=== PATIENT | male | born 1960 | race Caucasian/White ===

== ENCOUNTER 2019-11-19 08:18 | Outpatient (REF) | payer OTHER, SELFPAY ==
[2019-11-19 11:21] LABS: MANUAL DIFF FLAG NO
[2019-11-19 11:29] LABS: Basophils Absolute Auto 0.1 X10*3/uL (0.0-0.2); Basophils Percent Auto 0.9 % (0-2); Eosinophils Absolute Auto 0.3 X10*3/uL (0.0-0.4); Eosinophils Percent Auto 4.1 % (0-4); Hematocrit 44.5 % (42-52); Hemoglobin 15.2 g/dl (14.0-18.0); Imm Gran Abs Auto 0.02 X10*3/uL (0.00-0.03); Imm Gran Pct Auto 0.3 % (0.0-0.4); Lymphocytes Absolute Auto 1.8 X10*3/uL (1.2-4.9); Lymphocytes Percent Auto 27.6 % (20-40); Mean Corpuscular HGB Conc 34.2 g/dl (31.0-36.0); Mean Corpuscular Hemoglobin 32.5 pg (27.0-33.0); Mean Corpuscular Volume 95.1 fL (80-98); Mean Platelet Volume 10.1 fL (9.4-12.4); Monocytes Absolute Auto 0.6 X10*3/uL (0.1-1.2); Neutrophils Absolute Auto 3.6 X10*3/uL (2.0-8.3); Neutrophils Percent Auto 57.1 % (45-73); Platelet Count 186 X10*3/uL (160-400); Red Blood Count 4.68 X10*6/uL (4.60-5.80); Red Cell Distribution Width 11.9 % (11.0-16.0); White Blood Count 6.3 X10*3/uL (4.8-10.8)
[2019-11-19 11:55] LABS: Alanine Aminotransferase 46 U/L (0-40); Albumin Level 4.5 g/dL (3.5-5.0); Alkaline Phosphatase 56 U/L (39-117); Anion Gap 11 (12-20); Aspartate Amino Transferase 28 U/L (5-37); Bilirubin Total 0.7 mg/dL (0.0-1.0); Blood Urea Nitrogen 18 mg/dL (9-16); Calcium 9.2 mg/dL (8.4-10.2); Carbon Dioxide 28 mmol/L (22-29); Chloride 105 mmol/L (96-108); Cholesterol 167 mg/dL; Estimated Glomerular Filt Rate > 60; Glucose Fasting 97 mg/dL (60-99); HDL Cholesterol 37 mg/dL; LDL Cholesterol Calculated 102 mg/dl; Potassium 4.2 mmol/l (3.3-5.1); Sodium 140 mmol/L (135-145); Triglycerides 140 mg/dL
[2019-11-19 12:11] LABS: Glucose Urine UA NEG (NEG); Leukocyte Esterase Urine NEG (NEG); Nitrite Urine NEG (NEG); Specific Gravity - Urine 1.015 (1.005-1.025); Urine Blood NEG (NEG); Urine Ketones NEG (NEG); Urine Protein NEG (NEG-TRACE)
[2019-11-19 12:12] LABS: Appearance Urine CLEAR; Color Urine YELLOW
[2019-11-19 12:19] LABS: Prostate Specific Antigen 1.58 ng/mL (<0.05-4.0); Thyroid Stimulating Hormone 3.29 mIU/mL (0.32-4.0); Vitamin D 25-OH Total 31.9 ng/mL (>30)
[2019-11-19 12:43] LABS: RBC Urine 0-2 /HPF (0); WBC Urine 0 /HPF (0-4)
== END 2019-11-19 08:19 | disposition home or self-care (01) ==
LOC: HO.HMGCLDS 08:18
PROVIDERS: PCP Internal Medicine; Visit Provider Internal Medicine
DX: Z00.00 Encounter for general adult medical examination without abnormal findings (principal); I10 Essential (primary) hypertension; E55.9 Vitamin D deficiency, unspecified; Z80.42 Family history of malignant neoplasm of prostate
CPT/HCPCS: 36415; 80053; 80061; 81003; 81015; 82306; 84153; 84443; 85025

== ENCOUNTER 2020-01-28 07:28 | Day surgery (SDC) | payer BC, SELFPAY ==
[2020-01-24 10:40] VITALS: BMI 32.4
--- NOTE | 2020-01-26 14:28 | P.CONAN_ITS ---
Documented by User: Svetlana Parada 01/26/20 14:29 HPI - Anesthesia Eval Consult details Narrative: 59yo M for Colonoscopy [facility] Past Medical History Medical History HTN (hypertension) Surgical History Surgical History History of total left knee replacement Hx of arthroscopy of right knee Hx of colonoscopy Hx of umbilical hernia repair Social History Social History Are you a primary workforce investment act career manager to a significant other at home: No Do you presently have visiting nurse or other home services: No Smoking Status: Unknown if ever smoked Use of substances other than those prescribed or required for medical reasons: No Advance Directives: No Advance Directives Information Provided: No Advance Directives on File: No Meds Allergies Allergy/AdvReac Type Severity Reaction Status Date / Time No Known Allergies Allergy Verified 01/24/20 10:45 Home Medications Medication Instructions Recorded Confirmed Type acetaminophen [Tylenol Extra 500 mg PO Q6H PRN 01/24/20 01/24/20 History Strength] yrlmxxdo-osm-ZP-lycopen-lutein 1 tab PO DAILY 01/24/20 01/24/20 History [Centrum Silver Men] Exam Exam Date and Time: January 26, 2020 1429 Height,Weight and Vital Signs: Height 5 ft 11.5 in Weight 107.048 kg Assessment and Plan Assessment Anesthesia Assessment: Chart Reviewed Documented by User: Shelley Prado 01/28/20 08:14 [facility] Past Medical History Medical History HTN (hypertension) Surgical History Surgical History History of total left knee replacement Hx of arthroscopy of right knee Hx of colonoscopy Hx of umbilical hernia repair Social History Social History Are you a primary workforce investment act career manager to a significant other at home: No Do you presently have visiting nurse or other home services: No Smoking Status: Unknown if ever smoked Use of substances other than those prescribed or required for medical reasons: No Advance Directives: No Advance Directives Information Provided: No Advance Directives on File: No Meds Allergies Allergy/AdvReac Type Severity Reaction Status Date / Time No Known Allergies Allergy Verified 01/24/20 10:45 Home Medications Medication Instructions Recorded Confirmed Type acetaminophen [Tylenol Extra 500 mg PO Q6H PRN 01/24/20 01/24/20 History Strength] phtqzull-lcg-OF-lycopen-lutein 1 tab PO DAILY 01/24/20 01/24/20 History [Centrum Silver Men] Exam Airway Mallampati Class: II (Caplaterally top) TM Dist: >3cm Neck ROM: Full Heart: RrR Lungs: CTA. L Assessment and Plan Final Anesthetic Review NPO: Yes ASA Class: II Final Preanesthetic Review: Meds/Allgs Chart Reviewed Patient Risk: Intermediate Procedure Risk: Intermediate Anesthetic Plan Anesthetic Plan: MAC: Disposition: Standard PACU
[2020-01-28 07:56] VITALS: BP 158/84; PULSE 77; RESP 16; TEMP 36.3; O2SAT 97
[2020-01-28] MEDS: Lactated Ringers 1,000 ML 100 ML IVCONT (08:02)
--- NOTE | 2020-01-28 08:18 | MHC.SHP ---
Pre-Procedural Eval Section A The patient is an INPATIENT: No Changes since office visit: No Cold of Flu in the past 2 weeks, No New Medical Problems, No Changes in Medication and No Patient answered all questions The History & Physical has been completed within 30 days and I have reviewed it.: Yes Section B Chief Complaint: screening Allergies: Allergies Allergy/AdvReac Type Severity Reaction Status Date / Time No Known Allergies Allergy Verified 01/24/20 10:45 Plan Patient has been examined and remains a candidate for the planned procedure
[2020-01-28 08:47] VITALS: BP 119/73; PULSE 77; RESP 14; TEMP 37.1; O2SAT 97
--- NOTE | 2020-01-28 08:49 | PM.OP ---
Brief Operative Note Date of Service: 01/28/20 Pre-op diagnosis: screening Post-op diagnosis: same Procedure: colonoscopy Surgeon: Nathan Arenas Anesthesia: MAC Estimated blood loss (mL): 0 Pathology: none sent Condition: stable Disposition: PACU
[2020-01-28 09:02] VITALS: BP 126/82; PULSE 70; RESP 16; TEMP 37.1; O2SAT 97
--- NOTE | 2020-01-28 09:09 | OP_ITS ---
SURGEON: Nathan Arenas MD PREOPERATIVE DIAGNOSIS: POSTOPERATIVE DIAGNOSIS: PROCEDURE PERFORMED: Colonoscopy to the terminal ileum. ESTIMATED BLOOD LOSS: COMPLICATIONS: ANESTHESIA: ASSISTANTS: SPECIMENS: INDICATION: Colon cancer screening. MEDICATIONS: Monitored anesthesia care. DESCRIPTION OF PROCEDURE: History and physical performed. The risks and benefits of the procedure were explained to the patient. Informed consent was obtained and the patient was placed in the left lateral decubitus position. Digital rectal exam was performed and was found to be normal. The Olympus pediatric video colonoscope was introduced into the rectum and advanced to the cecum without difficulty. The cecum was identified by transillumination, palpation, and identification of ileocecal valve. Examination was performed and the scope was removed. He tolerated the procedure well and was taken to recovery area in stable condition. FINDINGS: The terminal ileum was normal. The visualized colonic mucosa was within normal limits without evidence of masses or ulcers. No polyps were identified. The quality of prep was good. Retroflexed examination was normal. IMPRESSION: Normal colonoscopy. RECOMMENDATIONS: 1. Follow up as needed. 2. Repeat colonoscopy is recommended in 5 years because of prior history of colon polyps and family history of colon polyps as well. MD ALIZA Pantoja/JESSICA / [id number]
--- NOTE | 2020-01-28 09:18 | HO.POSTANES ---
Post Anesthesia Evaluation Post Anesthesia Evaluation Vital Signs: Vital Signs Temp Pulse Resp BP Pulse Ox 01/28/20 09:02 98.7 F 70 16 126/82 97 01/28/20 08:47 98.7 F 77 14 119/73 97 01/28/20 07:56 97.3 F 77 16 158/84 H 97 Anesthesia: Monitored Mental Status: Awake Pain Control: Satisfactory Nausea/Vomiting: None Hydration: Adequate Anesthesia-Related Issues: No Anes. Related Issues
== END 2020-01-28 09:38 | disposition home or self-care (01) ==
PROVIDERS: PCP Internal Medicine; Visit Provider Internal Medicine Gastroenterology
PROC: 0DJD8ZZ Inspection of Lower Intestinal Tract, Via Natural or Artificial Opening Endoscopic (ICD-10-PCS; CPT 45378; principal; 2020-01-28 10:00)
DX: Z12.11 Encounter for screening for malignant neoplasm of colon (principal); Z86.010 Personal history of colon polyps; Z83.71 Family history of colonic polyps
CPT/HCPCS: 45378

== ENCOUNTER 2021-05-02 07:14 | Outpatient (REF) | payer OTHER, SELFPAY ==
[2021-05-02 11:17] LABS: Appearance Urine CLEAR; Color Urine YELLOW; Glucose Urine UA NEG (NEG); Leukocyte Esterase Urine NEG (NEG); Nitrite Urine NEG (NEG); PH 5.5 (5.0-8.0); Specific Gravity - Urine 1.025 (1.005-1.025); Urine Blood NEG (NEG); Urine Ketones NEG (NEG); Urine Protein NEG (NEG-TRACE)
[2021-05-02 11:18] LABS: MANUAL DIFF FLAG NO
[2021-05-02 11:42] LABS: Basophils Absolute Auto 0.1 X10*3/uL (0.0-0.2); Basophils Percent Auto 0.9 % (0-2); Eosinophils Absolute Auto 0.3 X10*3/uL (0.0-0.4); Eosinophils Percent Auto 3.7 % (0-4); Hematocrit 44.9 % (42.0-52.0); Hemoglobin 15.3 g/dl (14.0-18.0); Imm Gran Abs Auto 0.01 X10*3/uL (0.00-0.03); Imm Gran Pct Auto 0.1 % (0.0-0.4); Lymphocytes Absolute Auto 2.1 X10*3/uL (1.2-4.9); Lymphocytes Percent Auto 31.1 % (20-40); Mean Corpuscular HGB Conc 34.1 g/dl (31.0-36.0); Mean Corpuscular Hemoglobin 32.6 pg (27.0-33.0); Mean Corpuscular Volume 95.5 fL (80.0-98.0); Mean Platelet Volume 9.8 fL (9.4-12.4); Monocytes Absolute Auto 0.6 X10*3/uL (0.1-1.2); Monocytes Percent Auto 8.6 % (2-11); Neutrophils Absolute Auto 3.7 x10*3/uL (2.0-8.3); Neutrophils Percent Auto 55.6 % (45-73); Platelet Count 199 X10*3/uL (160-400); Red Cell Distribution Width 12.1 % (11.0-16.0); White Blood Count 6.7 X10*3/uL (4.8-10.8)
[2021-05-02 12:26] LABS: Alanine Aminotransferase 48 U/L (0-40); Albumin Level 4.3 g/dL (3.5-5.0); Alkaline Phosphatase 62 U/L (39-117); Anion Gap 12 (12-20); Aspartate Amino Transferase 27 U/L (5-37); Bilirubin Total 0.7 mg/dL (0.0-1.0); Blood Urea Nitrogen 18 mg/dL (9-16); Calcium 9.5 mg/dL (8.4-10.2); Carbon Dioxide 26 mmol/L (22-29); Chloride 105 mmol/L (96-108); Cholesterol 181 mg/dL; Estimated Glomerular Filt Rate > 60; Glucose Fasting 109 mg/dL (60-99); HDL Cholesterol 38 mg/dL; LDL Cholesterol Calculated 114 mg/dl; Potassium 4.2 mmol/L (3.3-5.1); Sodium 139 mmol/L (135-145); Total Protein 7.2 g/dL (6.5-8.0); Triglycerides 145 mg/dL
[2021-05-02 12:48] LABS: Thyroid Stimulating Hormone 4.06 uIU/mL (0.32-4.0); Vitamin D 25-OH Total 21.7 ng/mL (>30)
== END 2021-05-02 07:15 | disposition home or self-care (01) ==
LOC: HO.HMGCLDS 07:14
PROVIDERS: Visit Provider Internal Medicine
DX: Z00.00 Encounter for general adult medical examination without abnormal findings (principal); E55.9 Vitamin D deficiency, unspecified; E66.09 Other obesity due to excess calories; Z68.31 Body mass index [BMI] 31.0-31.9, adult
CPT/HCPCS: 36415; 80053; 80061; 81003; 82306; 84443; 85025

== ENCOUNTER → 2021-08-16 13:57 | Outpatient (REF) | payer OTHER, SELFPAY ==
--- NOTE | 2021-08-16 13:56 | ECG_ITS ---
Test Reason : R00.2 Blood Pressure : / mmHG Vent. Rate : 081 BPM Atrial Rate : 081 BPM P-R Int : 160 ms QRS Dur : 084 ms QT Int : 378 ms P-R-T Axes : 023 002 044 degrees QTc Int : 439 ms Sinus rhythm with occasional Premature ventricular complexes Otherwise normal ECG No previous ECGs available Referred By: Dev Fairchild Electronically Signed By:MARY MOHAN
--- NOTE | 2021-08-16 14:06 | CA_ITS ---
Transthoracic Echocardiogram Patient (Last, First, Middle): Andrea Wong, Gender: Male Date of : 1960 Age: 61 Procedure Date: 08/16/2021 Procedure Type: Transthoracic Echocardiogram Location: OP Height: 182.88 cm Weight: 105.24 kg BSA: 2.27 m2 Heart Rate: 72 bpm BP: 138 / 74 mmHg Compensation Analyst: SB Referring MD: Nadeem Fairchild DO Symptoms: PALPITATOINS Study Quality: Adequate ECG Rhythm: Sinus Conclusions: - The left ventricular systolic function is normal. The visually estimated ejection fraction is between 60-65%. - No obvious valvular pathology seen on this study. Findings Left Ventricle Normal left ventricular cavity size. There is normal left ventricular wall thickness. The left ventricular systolic function is normal. The visually estimated ejection fraction is between 60-65%. There is no evidence of regional wall motion abnormalities. Diastolic function is normal for age. LV peak GLS -17.7% (normal). Right Ventricle Normal right ventricular cavity size and systolic function. Atria Both atria are normal in size. Aortic Valve There is a normal trileaflet aortic valve. There is no aortic valve stenosis. There is no aortic valve regurgitation. Mitral Valve The mitral valve appears normal. There is no mitral valve regurgitation. There is no mitral valve stenosis. Pulmonic Valve The pulmonic valve is likely normal. Tricuspid Valve Normal tricuspid valve structure. There is trace tricuspid valve regurgitation. The pulmonary artery systolic pressure is normal. Great Vessels The asc aorta is normal in size. Venous The inferior vena cava is normal in size and collapses greater than 50% with inspiration. Pericardium/Pleural There is no evidence of pericardial effusion. Prior Study Comparison No prior study available for comparison. Recommendations, Care & Conclusions No obvious valvular pathology seen on this study. Measurements 2D Linear Measurements IVSd: 1.08 0.6-0.9/0.6-1.0 cm LVIDd: 5.00 3.9-5.3/4.2-5.9 cm LVIDd Index: 2.20 2.4-3.2/2.2-3.1 cm/m2 LVIDs: 3.06 2.0-3.6 cm LVPWd: 0.90 0.7-1.1 cm Ao Root: 4.20 2.1-3.5 cm LA Diam: 3.50 2.7-3.8/3.0-4.0 cm LAIDs Index: 1.54 1.5-2.3 cm/m2 LV Mass: 223.06 67-162/88-224 g LV Mass Index: 98.27 43-95/49-115 g/m2 LVOT Diam: 2.40 3.0+(-)1.3 cm 2D Systolic Function EF 4C: 58.60 >55% EF 2C: 59.30 >55% EF BiP: 59.40 >55% Mitral Valve MV Pk E: 0.60 MV PK A: 0.67 MV Decel Time: 279.00 E/A: 0.90 E'Lateral: 8.05 E'Medial: 5.00 E/E' Med: 11.90 E/E' Lat: 7.40 PHT: 82.00 MVA PHT: 2.68 Decel [place]: 2.14 Aortic Valve AoV Pk Darius: 1.08 AoV Mn Darius: 0.81 AoV VTI: 0.22 AoV Pk Grad: 5.00 Aov Mn Grad: 3.00 ANABELLE Cont.VTI: 3.74 LVOT LVOT Pk Darius: 1.03 LVOT Mn Darius: 0.75 LVOT VTI: 0.18 LVOT Pk Grad: 4.00 LVOT Mn Grad: 2.00 LVOT Diam: 2.40 LVOT Area: 4.52 Diastolic Function MV Pk E: 0.60 MV Pk A: 0.67 E/A: 0.90 E'Medial: 5.00 E/E' Med: 11.90 E' Laterial: 8.05 E/E' Lat: 7.40 Right Ventricle TAPSE (mm): 27.00 TVS' Darius: 19.80 Tricuspid Valve RA Press: 3.00 Great Vessels Aorta Ao Root-2D: 4.20 2.0-3.7 cm Sinus of Valsalva: 4.30 2.0-3.[address] Ridge: 3.25 1.7-3.4 cm Ao Asc: 3.60 2.1-3.4 cm Pulmonary Veins Pulm Vein S/D 1.40 Pulmonary Valve PV Pk Darius: 1.28 Peak PV Grad: 7.00 Updated in Other Vendor System with Status of Final Koby Armijo MD electronically signed on 08/18/2021 11:32:05 AM with status of Final
--- NOTE | 2021-08-16 14:08 | ECG_ITS ---
Hook-up date: 2021-08-16 13:52:00 Duration: 24:26:00 Test Indications: PALPITATIONS Medications: 288588 QRS complexes 814 Ventricular ectopics which represent <1 % of total QRS comp. 2763 Supraventricular ectopics which represent 2 % of total QRS comp. * Paced QRS complexs which represent % of total QRS comp. VENTRICULAR ECTOPY 814 Isolated 0 Bigeminal Cycles 0 Couplets 0 Runs 0 Beats in Runs * Beats LONGEST at * BPM at :: -- * Beats FASTEST at * BPM at :: -- SUPRAVENTRICULAR ECTOPY 2645 Isolated 56 Couplets 2 Runs 6 Beats in Runs 3 Beats LONGEST at 102 BPM at 22:02:37 2021-08-16 3 Beats FASTEST at 102 BPM at 22:02:37 2021-08-16 HEART RATES 52 MIN at 02:50:28 2021-08-17 74 AVG 126 MAX at 11:20:42 2021-08-17 LONGEST RR 1.2800 secs at 05:05:53 2021-08-17 S-T LEVELS Channel 1 - 128 mm at 13:52:00 2021-08-16 - 128 mm at 13:52:00 2021-08-16 Channel 2 - 128 mm at 13:52:00 2021-08-16 - 128 mm at 13:52:00 2021-08-16 Channel 3 - 128 mm at 03:31:11 -- - 128 mm at 03:31:11 Underlying rhythm is sinus; Average ventricular rate 74/min; range 52-126/min; Occasional supraventricular ectopy (burden 3%) Rare ventricular ectopy (<1%); No sustained arrhythmias; Patient diary not available for review. Referred By: Nadeem Fairchild Overread By: MARY MOHAN
== END ==
LOC: HO.CARD 13:57
PROVIDERS: PCP Internal Medicine; Visit Provider Obstetrics & Gynecology
DX: R00.2 Palpitations (principal)
CPT/HCPCS: 93005; 93226; 93306; 93356

== ENCOUNTER 2022-01-08 08:05 | Outpatient (REF) | payer OTHER, SELFPAY ==
[2022-01-08 11:29] LABS: Appearance Urine Clear; Color Urine Yellow; Glucose Urine UA Negative (Negative); Leukocyte Esterase Urine Negative (Negative); Nitrite Urine Negative (Negative); PH 5.5 (5.0-9.0); Specific Gravity - Urine 1.025 (1.005-1.025); Urine Blood Negative (Negative); Urine Ketones Negative (Negative); Urine Protein Negative (Neg-Trace)
[2022-01-08 11:38] LABS: MANUAL DIFF FLAG NO
[2022-01-08 11:51] LABS: Basophils Absolute Auto 0.1 X10*3/uL (0.0-0.2); Eosinophils Absolute Auto 0.1 X10*3/uL (0.0-0.4); Eosinophils Percent Auto 2.4 % (0-4); Hematocrit 43.5 % (42.0-52.0); Imm Gran Abs Auto 0.01 X10*3/uL (0.00-0.03); Imm Gran Pct Auto 0.2 % (0.0-0.4); Lymphocytes Absolute Auto 1.8 X10*3/uL (1.2-4.9); Lymphocytes Percent Auto 31.6 % (20-40); Mean Corpuscular HGB Conc 34.5 g/dl (31.0-36.0); Mean Corpuscular Hemoglobin 32.4 pg (27.0-33.0); Mean Platelet Volume 9.6 fL (9.4-12.4); Monocytes Absolute Auto 0.6 X10*3/uL (0.1-1.2); Monocytes Percent Auto 10.8 % (2-11); Neutrophils Absolute Auto 3.1 x10*3/uL (2.0-8.3); Platelet Count 188 X10*3/uL (160-400); Red Blood Count 4.63 X10*6/uL (4.60-5.80); Red Cell Distribution Width 11.9 % (11.0-16.0); White Blood Count 5.8 X10*3/uL (4.8-10.8)
[2022-01-08 13:08] LABS: Alanine Aminotransferase 48 U/L (0-40); Albumin Level 4.3 g/dL (3.5-5.0); Alkaline Phosphatase 56 U/L (39-117); Anion Gap 12 (12-20); Aspartate Amino Transferase 29 U/L (5-37); Bilirubin Total 1.1 mg/dL (0.0-1.0); Blood Urea Nitrogen 20 mg/dL (9-16); Calcium 9.3 mg/dL (8.4-10.2); Carbon Dioxide 26 mmol/L (22-29); Chloride 106 mmol/L (96-108); Cholesterol 163 mg/dL; Estimated Glomerular Filt Rate > 60; Glucose Fasting 108 mg/dL (60-99); HDL Cholesterol 36 mg/dL; LDL Cholesterol Calculated 105 mg/dl; PSA,Total (Free>4and<10) 2.53 ng/mL (0.00-4.00); Potassium 4.4 mmol/L (3.3-5.1); Sodium 140 mmol/L (135-145); Thyroid Stimulating Hormone 3.01 uIU/mL (0.32-4.0); Triglycerides 113 mg/dL; Vitamin D 25-OH Total 27.4 ng/mL (>30)
== END 2022-01-08 08:06 | disposition home or self-care (01) ==
LOC: HO.HMGCLDS 08:05
PROVIDERS: PCP Internal Medicine; Visit Provider Internal Medicine
DX: Z00.00 Encounter for general adult medical examination without abnormal findings (principal); Z12.5 Encounter for screening for malignant neoplasm of prostate; E55.9 Vitamin D deficiency, unspecified; E66.09 Other obesity due to excess calories; I10 Essential (primary) hypertension; Z80.42 Family history of malignant neoplasm of prostate
CPT/HCPCS: 36415; 80053; 80061; 81003; 82306; 84153; 84443; 85025

== ENCOUNTER 2023-02-05 07:49 | Outpatient (REF) | payer OTHER, SELFPAY ==
[2023-02-05 11:30] LABS: MANUAL DIFF FLAG NO
[2023-02-05 11:39] LABS: Basophils Absolute Auto 0.1 X10*3/uL (0.0-0.2); Basophils Percent Auto 1.1 % (0-2); Eosinophils Absolute Auto 0.1 X10*3/uL (0.0-0.4); Eosinophils Percent Auto 2.5 % (0-4); Hematocrit 43.1 % (42.0-52.0); Imm Gran Abs Auto 0.01 X10*3/uL (0.00-0.03); Imm Gran Pct Auto 0.2 % (0.0-0.4); Lymphocytes Absolute Auto 1.5 X10*3/uL (1.2-4.9); Lymphocytes Percent Auto 25.7 % (20-40); Mean Corpuscular HGB Conc 34.8 g/dl (31.0-36.0); Mean Corpuscular Hemoglobin 32.7 pg (27.0-33.0); Mean Corpuscular Volume 93.9 fL (80.0-98.0); Mean Platelet Volume 9.8 fL (9.4-12.4); Monocytes Absolute Auto 0.6 X10*3/uL (0.1-1.2); Monocytes Percent Auto 9.8 % (2-11); Neutrophils Absolute Auto 3.4 x10*3/uL (2.0-8.3); Neutrophils Percent Auto 60.7 % (45-73); Platelet Count 181 X10*3/uL (160-400); Red Blood Count 4.59 X10*6/uL (4.60-5.80); Red Cell Distribution Width 11.9 % (11.0-16.0); White Blood Count 5.6 X10*3/uL (4.8-10.8)
[2023-02-05 12:23] LABS: Alanine Aminotransferase 48 U/L (0-40); Albumin Level 4.3 g/dL (3.5-5.0); Alkaline Phosphatase 57 U/L (39-117); Anion Gap 11 (12-20); Aspartate Amino Transferase 30 U/L (5-37); Bilirubin Total 0.7 mg/dL (0.0-1.0); Blood Urea Nitrogen 18 mg/dL (9-16); Calcium 9.3 mg/dL (8.4-10.2); Carbon Dioxide 25 mmol/L (22-29); Chloride 108 mmol/L (96-108); Cholesterol 169 mg/dL (<200); Estimated Glomerular Filt Rate > 60; Glucose Fasting 114 mg/dL (60-99); HDL Cholesterol 38 mg/dL (>40); LDL Cholesterol Calculated 103 mg/dL (<100); Potassium 3.8 mmol/L (3.3-5.1); Sodium 140 mmol/L (135-145); Total Protein 6.6 g/dL (6.5-8.0); Triglycerides 141 mg/dL (<150)
[2023-02-05 12:25] LABS: PSA,Total (Free>4and<10) 3.16 ng/mL (0.00-4.00)
[2023-02-05 12:39] LABS: Thyroid Stimulating Hormone 3.11 uIU/mL (0.32-4.0); Vitamin D 25-OH Total 32.1 ng/mL (>30)
== END 2023-02-05 07:50 | disposition home or self-care (01) ==
LOC: HO.HMGCLDS 07:49
PROVIDERS: PCP Internal Medicine; Visit Provider Internal Medicine
DX: Z00.00 Encounter for general adult medical examination without abnormal findings (principal); Z12.5 Encounter for screening for malignant neoplasm of prostate; I10 Essential (primary) hypertension; E55.9 Vitamin D deficiency, unspecified; E66.09 Other obesity due to excess calories; Z80.42 Family history of malignant neoplasm of prostate
CPT/HCPCS: 36415; 80053; 80061; 82306; 84153; 84443; 85025

== ENCOUNTER 2024-01-27 07:39 | Outpatient (REF) | payer OTHER, SELFPAY ==
[2024-01-27 10:18] LABS: MANUAL DIFF FLAG NO
[2024-01-27 10:31] LABS: Basophils Absolute Auto 0.1 X10*3/uL (0.0-0.2); Eosinophils Absolute Auto 0.2 X10*3/uL (0.0-0.4); Hematocrit 42.6 % (42.0-52.0); Imm Gran Abs Auto 0.02 X10*3/uL (0.00-0.03); Imm Gran Pct Auto 0.3 % (0.0-0.4); Lymphocytes Absolute Auto 1.6 X10*3/uL (1.2-4.9); Mean Corpuscular HGB Conc 35.2 g/dl (31.0-36.0); Mean Corpuscular Hemoglobin 33.2 pg (27.0-33.0); Mean Corpuscular Volume 94.2 fL (80.0-98.0); Mean Platelet Volume 10.1 fL (9.4-12.4); Monocytes Absolute Auto 0.6 X10*3/uL (0.1-1.2); Monocytes Percent Auto 9.3 % (2-11); Neutrophils Absolute Auto 3.7 x10*3/uL (2.0-8.3); Neutrophils Percent Auto 60.4 % (45-73); Platelet Count 185 X10*3/uL (160-400); Red Blood Count 4.52 X10*6/uL (4.60-5.80); Red Cell Distribution Width 12.1 % (11.0-16.0); White Blood Count 6.1 X10*3/uL (4.8-10.8)
[2024-01-27 10:53] LABS: Albumin Level 4.3 g/dL (3.5-5.0); Alkaline Phosphatase 54 U/L (39-117); Anion Gap 12 (12-20); Aspartate Amino Transferase 38 U/L (5-37); Bilirubin Total 0.7 mg/dL (0.0-1.0); Blood Urea Nitrogen 17 mg/dL (9-16); Carbon Dioxide 29 mmol/L (22-29); Chloride 104 mmol/L (96-108); Cholesterol 162 mg/dL (<200); Estimated Glomerular Filt Rate > 60; Glucose Fasting 112 mg/dL (60-99); HDL Cholesterol 35 mg/dL (>40); LDL Cholesterol Calculated 99 mg/dL (<100); Sodium 141 mmol/L (135-145); Total Protein 7.2 g/dL (6.5-8.0); Triglycerides 143 mg/dL (<150)
[2024-01-27 10:55] LABS: Estimated Average Glucose 114 mg/dL; Hemoglobin A1C 142.4531 umol/L; Hemoglobin A1c % 5.6 % (<6.0); Total Hemoglobin (HGBA1C) 3801.8729 umol/L
[2024-01-27 11:07] LABS: PSA,Total (Free>4and<10) 3.56 ng/mL (0.00-4.00)
[2024-01-27 11:08] LABS: Alanine Aminotransferase 62 U/L (0-40); Thyroid Stimulating Hormone 4.16 uIU/mL (0.32-4.0); Vitamin B12 581 pg/mL (200-900)
--- OUTSIDE RECORDS SUMMARY | 2024-01-28 18:37 | XMS_ITS ---
Author Organization Nadeem Fairchild DO FAC Address [address] [place] [phone] Care Team Providers Care Supervisor Wrapping Room Name Role Phone Nadeem Fairchild Primary Care Provider [phone] ALLERGIES No Known Allergies REASON FOR REFERRAL Reason Memory loss Word hun jeanna Subtle loss of taste Diagnosis 1 Memory loss (R41.3) [facility]erring Provider First Name Nadeem Referring Provider Last Name Devorah Referring Provider Speciality Internal M edicine Referred Provider Basilia Jones Referred Provider Specialty Neurology General Notes Luci Zaragoza 024 01:34:59 PM EDT > referral faxed; patient notified. Referral Priority Routine Referral Appointment Date 01/22/2024 Reason Hearing loss Tinnitu s Subtle loss of taste Diagnosis 1 Bilateral hearing lo ss, unspecified hearing loss type (H91.93) Referral Organization Nadeem Kovacs FACP Referring Provider First Name Nadeem Referring Provider Last Name Devorah Referring Provider Speciality Internal edicine Referred Provider Marlo Allen Referred Provider Specialty Otology, Lar yngology, Rhinology General Notes Luci Zaragoza 024 01:03:40 PM EDT > patient given Dr. Allen's phone number to call for appointment. Referral Priority Routine Referral Appointment Date 01/27/2024 REASON FOR VISIT Physical, annual visit, Follow up hypertension, diet controlled MEDICATIONS Medication SIG (Take, Route, Frequency, Duration) Notes Start Date End Date Status Centrum Men - 1 tablet Orally Once a day Active SOCIAL HISTORY Tobacco Use: Social History Observation Description Date Details (start date - stop date) Never Smoker NA - NA Sex Assigned At : Social History Observation Description Sex Assigned At Unknown Tobacco Use/Smoking Question Answer Notes Patient is a nonsmoker Additional Findings: Tobacco Non-User Cu rrent non-smoker, currently using no form of tobacco Alcohol Screen Question Answer Notes Did you have a drink contain ing alcohol in the past year? Yes How often did you have a dri nk containing alcohol in the past year? 2 to 3 times a week (3 points) How many drinks did you have on a typical day when you were drinking in the past year? 1 or 2 drinks (0 point) How often did you have 6 or more drinks on one occasion in the past year? Never (0 point) Points 3 Interpretation Negative PROBLEMS Problem Type ICD Code Onset Dates Problem Status W/U Status Risk SNOMED Code Notes Problem Memory loss (R41.3) Active confirmed 99870815 Problem Bilateral hearing loss, unspecified hearing loss type (H91.93) Active confirmed 84850703 VITAL SIGNS BMI 30.72 kg/m2 11/14/2023 Heart Rate 77 /min 11/14/2023 Height 72 in 11/14/2023 Weight 226.5 lbs 11/14/2023 Encounters Encounter Location Date Provider Diagnosis Nadeem Fairchild , [address] [phone] 11/14/2023 Nadeem Fairchild Encounter for genera l adult medical examination without abnormal findings Z00.00 ; Memory loss R41.3 and Bilateral hearing loss, unspecified hearing loss type H91.93 ASSESSMENTS Encounter Date Diagnosis Assessment Notes Treatment Notes Treatment Clinical Notes 11/14/2023 Encounter for general adult medical examination without abnormal findings (ICD-10 - Z00.00) 11/14/2023 Memory loss (ICD-10 - R41.3) 11/14/2023 Bilateral hearing loss, unspecified hearing loss type (ICD-10 - H91.93) PLAN OF TREATMENT Pending Test Test Name Order Date CBC w DIFF 11/14/2023 LIPOPROTEIN FRACTIONATION (LIPID PANEL) 11/14/2023 PROFILE, FASTING 11/14/2023 TSH (THYROID STIMULATING HORMONE) 2023 PSA,Total (Free>4and<10) 11/14/2023 Hemoglobin A1c 11/14/2023 Referrals Referral Date Details 01/22/2024 01/22/2024, Memory l oss Word hunger Subtle loss of taste, Basilia Jones 01/27/2024 01/27/2024, Hearing loss Tinnitus Subtle loss of taste, Marlo Allen Next Appt Details Follow Up: 3 Months, Reason: follow up visit,review lab work Provider Name:Nadeem Flores sonia, 02/03/2024 02:30:00 PM, [address] [place] [address], [phone], Progress Notes * Examination Category Sub-Category Detail Notes General Examination GENERAL APPEARANCE: in no ac sokaogon distress, well developed, well nourished LUNGS: breathing comfortabl y at rest PSYCH: alert, oriented, cog nitive function intact History and Physical Notes * HPI (History of Present Illness) Category Sub-Category Detail Notes New symptom(s) Telehealth Location of provider:: Pro perez's home address Location of patient:: Address listed in demographics for today's visit Patient identification confirmed using:: Name, Telehealth method:: Video co nference where patient is visible to the provider of care Consent:: Patient verbally c onsented to treatment, Patient verbally consented to billing insurance company, Patient informed of any privacy concerns related to method of visit Total time spent with patient (mins): 33 Disclaimer: This Telehealth visit is being conducted per CDC recommendations due to the COVID-19 outbreak. Depression Screening PHQ-9 Little inte rest or pleasure in doing things: Not at all Feeling down, depressed, or hopeless: No t at all Trouble falling or staying asleep, or sl eeping too much: Not at all Feeling tired or having little energy: N ot at all Poor appetite or overeating: Not at all Feeling bad about yourself o r that you are a failure, or have let yourself or your family down: Not at all Trouble concentrating on thi ngs, such as reading the newspaper or watching television: Not at all Moving or speaking so slowly that other people could have noticed; or the opposite, being so fidgety or restless that you have been moving around a lot more than usual: Not at all Thoughts that you would be b dede off or of hurting yourself in some way: Not at all Total Score: 0 Interpretation and Intervention Depression Nikolay allan Findings: Negative Follow-Up for Depression: : Review of PH Q-9 found negative result; no follow-up needed Fall Risk Fall History Have you had two or more fal ls in the past year?: No Have you had any falls with injury in th e past year?: No Fall Risk Assessment:: No falls in the p ast year Communication Needs PCMH Communication Needs - PCM He aring Impairment?: Yes AU Vision Impairment?: Yes wears glasses Cognitive Impairment?: No SDOH Questions SDOH Questions In the past year have you been worried about losing your housing?: No In the past year have you or any family members you live with been unable to get any of the following when it was really needed? Check all that apply:: None Consultation Request Notes Referral Date Referring Provider Referred Provider Not es 11/14/2023 Nadeem Fairchild M Zubair Memory l oss Word hunger Subtle loss of taste 11/14/2023 Nadeem Fairchild Ram Gopal Hearin g loss Tinnitus Subtle loss of taste
--- OUTSIDE RECORDS SUMMARY | 2024-01-28 18:37 | XMS_ITS ---
Author Organization Nadeem Fairchild DO, FACP Address [address] [place], [place] [id number] Care Team Providers Care Refrigerator Crater Name Role Phone Nadeem Fairchild Primary Care Provider REASON FOR VISIT FYI only VITAL SIGNS BMI 31.85 kg/m2 11/19/2023 Blood pressure systolic 140 mm Hg 11/19/19 24 Blood pressure diastolic 90 mm Hg 024 Height 71.25 in 11/19/2023 Weight 230 lbs 11/19/2023 Encounters Encounter Location Date Provider Diagnosis Nadeem Fairchild DO, FACP [address] [place] [phone] 11/19/2023 Nadeem Fairchild PLAN OF TREATMENT Next Appt Details Provider Name:Nadeem scott, 02/03/2024 02:30:00 PM, [address] [place] [address], [phone],
--- OUTSIDE RECORDS SUMMARY | 2024-01-28 18:38 | XMS_ITS | Patient Health Record ---
Author Organization Nadeem Fairchild DO, [facility] Address [address] [place] [phone] Care Team Providers Care Web Analyst Name Role Phone DevorahNadeem nick Primary Care Provider ALLERGIES No Known Allergies RESULTS Component Value Reference Range Notes Complete Blood Count Auto Di ff Reviewed date:02/05/2023 11:57:39 AM Interpretation:Normal Performing Lab:[facility], [address] [place] [phone] Notes/Report: White Blood Count 5.6 4.8-10.8 X10*3/uL Red Blood Count 4.59 4.60-5.80 X10*6/uL Hemoglobin 15.0 14.0-18.0 g/dl Hematocrit 43.1 42.0-52.0 % Mean Corpuscular Volume 93.9 80.0-98.0 fL Mean Corpuscular Hemoglobin 32.7 27.0-33.0 pg Mean Corpuscular HGB Conc 34.8 31.0-36.0 g/dl Red Cell Distribution Width 11.9 11.0-16.0 % Platelet Count 181 160-400 X10*3/uL Mean Platelet Volume 9.8 9.4-12.4 fL Neutrophils Percent Auto 60.7 45-73 % Imm Gran Pct Auto 0.2 0.0-0.4 % Lymphocytes Percent Auto 25.7 20-40 % Monocytes Percent Auto 9.8 2-11 % Eosinophils Percent Auto 2.5 0-4 % Basophils Percent Auto 1.1 0-2 % NRBC Pct Auto 0.0 0.0-0.2 /100WBC Neutrophils Absolute Auto 3.4 2.0-8.3 x10*3/u L Imm Gran Abs Auto 0.01 0.00-0.03 X10*3/uL Lymphocytes Absolute Auto 1.5 1.2-4.9 X10*3/u L Monocytes Absolute Auto 0.6 0.1-1.2 X10*3/uL Eosinophils Absolute Auto 0.1 0.0-0.4 X10*3/u L Basophils Absolute Auto 0.1 0.0-0.2 X10*3/uL NRBC Abs Auto 0.000 0.0-0.012 X10*3/uL Comprehensive [place]. Panel Fa st Reviewed date:02/05/2023 12:48:30 PM Interpretation:Abnormal Performing Lab:[facility], [address] [place] [phone] Notes/Report: Sodium 140 135-145 mmol/L Potassium 3.8 3.3-5.1 mmol/L Chloride 108 96-108 mmol/L Carbon Dioxide 25 22-29 mmol/L Anion Gap 11 12-20 Blood Urea Nitrogen 18 9-16 mg/dL Creatinine 0.91 0.5-1.4 mg/dL Estimated Glomerular Filt Rate > 60 NOTE: For -Lao individuals, multiply the result by 1.210. Chronic Kidney Disease: Estimated GFR < 60 mL/min/1.73m2 Severe Kidney Disease: Estimated GFR < 15 mL/min/1.73m2 Glucose Fasting 114 60-99 mg/dL A fasting glucose from 100-125 mg/dl is considered impaired (pre-diabetes). Calcium 9.3 8.4-10.2 mg/dL Bilirubin Total 0.7 0.0-1.0 mg/dL Aspartate Amino Transferase 30 5-37 U/L Alanine Aminotransferase 48 0-40 U/L Total Protein 6.6 6.5-8.0 g/dL Albumin Level 4.3 3.5-5.0 g/dL Alkaline Phosphatase 57 39-117 U/L Lipid Panel Reviewed date:02/05/2023 12:48:30 PM Interpretation:Abnormal Performing Lab:[facility], [address] [place] [phone] Notes/Report: Triglycerides 141 <150 mg/dL Desirable Triglyceride: less than 150 mg/dL Borderline High Triglyceride 150-199 mg/dL High Triglyceride: 200-499 mg/dL Very High Triglyceride: greater than or equal to 5OO mg/dL Cholesterol 169 <200 mg/dL Desirable Cholesterol: less than 200 mg/dL Borderline High Cholesterol: 200-239 mg/dL High Cholesterol: greater than 239 mg/dL LDL Cholesterol Calculated 103 <100 mg/dL Desirable LDL: less than 100 mg/dL Near Optimal/Above Optimal LDL: 110-129 mg/dL Borderline High LDL: 130-159 mg/dL High LDL: 160-189 mg/dL Very High LDL: greater than or equal to 190 mg/dL HDL Cholesterol 38 >40 mg/dL Desirable HDL: greater than 40 mg/dL Note: This HDL assay may give artificially low results in patients with liver disease. PSA,Total (Free>4and<10) Reviewed date:02/05/2023 12:48:30 PM Interpretation:Normal Performing Lab:[facility], [address] [place] [phone] Notes/Report: PSA,Total (Free>4and<10) 3.16 0.00-4.00 ng/mL A Free PSA was not performed: The percentage of Free PSA can be used to enhance the differentiation of prostate cancer from benign prostatic disease in subjects whose PSA levels are between 4.0 and 10.0 ng/mL. For subjects whose PSA levels are below 4.0 or above 10.0 ng/mL, the risk of prostate cancer is determined on the basis of the PSA alone. Therefore the % Free PSA is recommended only for those subjects whose PSA levels are between 4.0 and 10.0 ng/mL. PSA methodology: [place] Alinity i Chemiluminescent Microparticle Immunoassay (CMIA) Vitamin D 25-OH Total Reviewed date:02/05/2023 12:48:30 PM Interpretation:Normal Performing Lab:[facility], [address] [place] [phone] Notes/Report: Vitamin D 25-OH Total 32.1 >30 ng/mL Health Based Reference Values* < 20 ng/mL Deficient 20-30 ng/mL Insufficient > 30 ng/mL Sufficient *Lida KUMAR. N Engl J Med. 2007;357:266-280 Care must be taken in interpreting Vitamin D results from different laboratories and methodologies. Published data demonstrated that results from patients undergoing hemodialysis may show a negative bias when tested with various automated 25-OH vitamin D assays when compared to LC-MS/MS. When testing samples from patients whose predominant form of Vitamin D is Vitamin D2, such as patients receiving Vitamin D2 supplementation, results that are subtherapeutic should be confirmed with another method such as LC-MS/MS. Thyroid Stimulating Hormone Reviewed date:02/05/2023 12:49:20 PM Interpretation:Normal Performing Lab:[facility], [address] [place] [phone] Notes/Report: Thyroid Stimulating Hormone 3.11 0.32-4.0 uIU/ mL Note: A sustained TSH level above 2.5 uIU/mL may warrant further investigation. TSH 3rd Generation ([facility]) Complete Blood Count Auto Di ff Reviewed date:01/27/2024 10:40:29 AM Interpretation:Normal Performing Lab:[facility], [address] [place] [phone] Notes/Report: White Blood Count 6.1 4.8-10.8 X10*3/uL Red Blood Count 4.52 4.60-5.80 X10*6/uL Hemoglobin 15.0 14.0-18.0 g/dl Hematocrit 42.6 42.0-52.0 % Mean Corpuscular Volume 94.2 80.0-98.0 fL Mean Corpuscular Hemoglobin 33.2 27.0-33.0 pg Mean Corpuscular HGB Conc 35.2 31.0-36.0 g/dl Red Cell Distribution Width 12.1 11.0-16.0 % Platelet Count 185 160-400 X10*3/uL Mean Platelet Volume 10.1 9.4-12.4 fL Neutrophils Percent Auto 60.4 45-73 % Imm Gran Pct Auto 0.3 0.0-0.4 % Lymphocytes Percent Auto 26.0 20-40 % Monocytes Percent Auto 9.3 2-11 % Eosinophils Percent Auto 3.0 0-4 % Basophils Percent Auto 1.0 0-2 % NRBC Pct Auto 0.0 0.0-0.2 /100WBC Neutrophils Absolute Auto 3.7 2.0-8.3 x10*3/u L Imm Gran Abs Auto 0.02 0.00-0.03 X10*3/uL Lymphocytes Absolute Auto 1.6 1.2-4.9 X10*3/u L Monocytes Absolute Auto 0.6 0.1-1.2 X10*3/uL Eosinophils Absolute Auto 0.2 0.0-0.4 X10*3/u L Basophils Absolute Auto 0.1 0.0-0.2 X10*3/uL NRBC Abs Auto 0.000 0.0-0.012 X10*3/uL Comprehensive [place]. Panel Fa st Reviewed date:01/27/2024 12:57:12 PM Interpretation:Abnormal Performing Lab:[facility], [address] [place] [phone] Notes/Report: Sodium 141 135-145 mmol/L Potassium 4.0 3.3-5.1 mmol/L Chloride 104 96-108 mmol/L Carbon Dioxide 29 22-29 mmol/L Anion Gap 12 12-20 Blood Urea Nitrogen 17 9-16 mg/dL Creatinine 1.11 0.5-1.4 mg/dL Estimated Glomerular Filt Rate > 60 Chronic Kidney Disease: Estimated GFR < 60 mL/min/1.73m2 Severe Kidney Disease: Estimated GFR < 15 mL/min/1.73m2 Glucose Fasting 112 60-99 mg/dL A fasting glucose from 100-125 mg/dl is considered impaired (pre-diabetes). Calcium 9.0 8.4-10.2 mg/dL Bilirubin Total 0.7 0.0-1.0 mg/dL Aspartate Amino Transferase 38 5-37 U/L Alanine Aminotransferase 62 0-40 U/L Total Protein 7.2 6.5-8.0 g/dL Albumin Level 4.3 3.5-5.0 g/dL Alkaline Phosphatase 54 39-117 U/L Lipid Panel Reviewed date:01/27/2024 12:55:57 PM Interpretation:Abnormal Performing Lab:[facility], [address] [place] [phone] Notes/Report: Triglycerides 143 <150 mg/dL Desirable Triglyceride: less than 150 mg/dL Borderline High Triglyceride 150-199 mg/dL High Triglyceride: 200-499 mg/dL Very High Triglyceride: greater than or equal to 5OO mg/dL Cholesterol 162 <200 mg/dL Desirable Cholesterol: less than 200 mg/dL Borderline High Cholesterol: 200-239 mg/dL High Cholesterol: greater than 239 mg/dL LDL Cholesterol Calculated 99 <100 mg/dL Desirable LDL: less than 100 mg/dL Near Optimal/Above Optimal LDL: 110-129 mg/dL Borderline High LDL: 130-159 mg/dL High LDL: 160-189 mg/dL Very High LDL: greater than or equal to 190 mg/dL HDL Cholesterol 35 >40 mg/dL Desirable HDL: greater than 40 mg/dL Note: This HDL assay may give artificially low results in patients with liver disease. PSA,Total (Free>4and<10) Reviewed date:01/27/2024 12:56:32 PM Interpretation:Normal Performing Lab:[facility], [address] [place] [phone] Notes/Report: PSA,Total (Free>4and<10) 3.56 0.00-4.00 ng/mL A Free PSA was not performed: The percentage of Free PSA can be used to enhance the differentiation of prostate cancer from benign prostatic disease in subjects whose PSA levels are between 4.0 and 10.0 ng/mL. For subjects whose PSA levels are below 4.0 or above 10.0 ng/mL, the risk of prostate cancer is determined on the basis of the PSA alone. Therefore the % Free PSA is recommended only for those subjects whose PSA levels are between 4.0 and 10.0 ng/mL. PSA methodology: [place] Alinity i Chemiluminescent Microparticle Immunoassay (CMIA) Vitamin B12 Reviewed date:01/27/2024 12:55:57 PM Interpretation:Normal Performing Lab:[address] [phone] Notes/Report: Vitamin B12 581 200-900 pg/mL NORMAL 200-900 PG/ML INDETERMINATE 160-199 PG/ML DEFICIENT < 160 PG/ML Thyroid Stimulating Hormone Reviewed date:01/27/2024 12:56:18 PM Interpretation:Abnormal Performing Lab:[address] [phone] Notes/Report: Thyroid Stimulating Hormone 4.16 0.32-4.0 uIU/ mL Note: A sustained TSH level above 2.5 uIU/mL may warrant further investigation. TSH 3rd Generation ([facility]) Hemoglobin A1c Reviewed date:01/27/2024 12:55:57 PM Interpretation:Normal Performing Lab:[facility], [facility] [place] [address] Notes/Report: Hemoglobin A1c % 5.6 <6.0 % Hemoglobin A1C Reference Range Adults: 4.8 - 6.0 % Non diabetic: < 6.0 % Goal: < 7.0 % Additional Action Suggested: > 8.0 % Note: Hemoglobin A1c results are invalid for patients with abnormal amounts of HbF. Blood transfusions may impact the HbA1c concentration in the patient sample. Estimated Average Glucose 114 eAG = Estimated average glucose which is %A1C expressed as average glucose, using the formula of the L5Y-Ykqgnar Average Glucose study (ADAG), Diabetes Care, Vol.31,#8, Sep. 2007 REASON FOR REFERRAL Reason Memory loss Word hun jeanna Subtle loss of taste Diagnosis 1 Memory loss (R41.3) Referral Organization Nadeem Kovacs FACP Referring Provider First Name Nadeem Referring Provider Last Name Devorah Referring Provider Speciality Internal edicine Referred Provider Basilia Jones Referred Provider [...] Referral Priority Routine Referral Appointment Date 01/27/2024 MEDICATIONS Medication SIG (Take, Route, Frequency, Duration) Notes Start Date End Date Status Centrum Men - 1 tablet Orally Once a day Active IMMUNIZATIONS Vaccine Route Administration Date Status Comme nts Td (adult) Unknown 06/05/2013 Administered Influenza Quad Unknown 12/05/2014 Administered Influenza Quad IM Intramuscular 10/23/2016 Administered Influenza Quad IM Intramuscular 10/24/2017 Administered Influenza Quad IM Intramuscular 12/04/2018 Administered COVID-19 Pfizer BioNTech Unknown 03/26/2020 Administere d COVID-19 Pfizer BioNTech Unknown 01/17/2021 Administere d Influenza Quad Unknown 04/04/2016 Administered COVID-19 Pfizer BioNTech Unknown 03/05/2020 Administere d Influenza Quad Unknown 11/29/2020 Administered Influenza Quad IM Intramuscular 11/06/2021 Administered COVID-19 Pfizer Bivalent Unknown 11/14/2021 Administere d Influenza Quad Unknown 11/06/2021 Administered Influenza Quad IM Intramuscular 11/12/2022 Administered SOCIAL HISTORY Tobacco Use: Social History Observation [...] W/U Status Risk SNOMED Code Notes Problem Vitamin D deficiency (E55.9) Active confirmed 89243980 Problem Other obesity due to excess calories (E66.09) Active confirmed 964919347 Problem Essential hypertension (I10) Active confirmed 58831561 Problem Bilateral impacted cerumen (H61.23) Active confirmed 78317348 Problem Memory loss (R41.3) Active confirmed 48181781 Problem FH: prostate cancer (Z80.42) Active confirmed 407045629 Problem Body mass index [BMI] 31.0-31.9, adult (Z68.31) Active confirmed 616155326 Problem Bilateral hearing loss, unspecified hearing loss type (H91.93) Active confirmed 25798193 Problem PVCs (premature ventricular contractions) (I49.3) Active confirmed 07292537 VITAL SIGNS Heart Rate 77 /min 11/14/2023 Blood pressure diastolic 90 mm Hg 11/19/2023 Height 71.25 in 11/19/2023 Blood pressure systolic 140 mm Hg 11/19/2023 Weight 230 lbs 11/19/2023 BMI 31.85 kg/m2 11/19/2023 Encounters Encounter Location Date Provider Diagnosis Nadeem Fairchild DO, [address] [phone] 11/19/2023 Nadeem Fairchild DO, [address] [id number] 11/14/2023 Nadeem Devorah Encounter for genera l adult medical examination [...] 2023 PSA,Total (Free>4and<10) 11/14/2023 Hemoglobin A1c 11/14/2023 Next Appt Details Provider Name:Nadeem Flores an, 02/03/2024 02:30:00 PM, [address] [place] [address], [phone], Insurance Providers Payer Name Payer Address Payer Phone Subscriber Number Group Number Insured Name Patient Relationship to Insured Coverage Start Date Coverage End Date [employer] [address] [place] [phone] [id number] Andrea Salinas Self - patient is the insured MEDICAL (GENERAL) HISTORY Medical History History ICD Code hypertension, diet controlled seasonal allergies gastroesophageal reflux disease (GERD) mononucleosis chronic labyrinthitis Palpitations R00.2 Surgical History Surgery Date(Month/Year) wisdom teeth extraction arthroscopic knee surgery, r epair of torn medial meniscus, right knee (Dr. Yuriy Sage) 07/2000 umbilical hernia repair 11/2018
--- OUTSIDE RECORDS SUMMARY | 2024-01-28 18:38 | XMS_ITS | Patient Health Record ---
Author Organization [facility] Address [address] [place] [phone] Care Team Providers Care Bucket Pusher Name Role Phone Nadeem Fairchild DO Primary Care Provider Unavail able Nathan Arenas Jr Unavailable REASON FOR REFERRAL No Information MEDICATIONS Medication SIG (Take, Route, Frequency, Duration) Notes Start Date End Date Status MiraLax (colon prep) 8.3 ounce ((238) grams mixed with Gatorade or Crystal Light orally begin at 5:00 p.m. the day before the procedure for 1 day 12/13/2019 Active Tylenol PRN Active Advil PRN Active Centrum Silver 50+Men Active IMMUNIZATIONS Vaccine Route Administration Date Status Comme nts Influenza Unknown 11/19/2019 Administered SOCIAL HISTORY Sex Assigned At : Social History Observation Description Sex Assigned At Unknown PROBLEMS Problem Type ICD Code Onset Dates Problem Status W/U Status Risk SNOMED Code Notes Problem Colon cancer screening (Z12.11) Active confirmed 513176679 Problem Encounter for other preprocedural examination (Z01.818) Active confirmed 555552988 PLAN OF TREATMENT Future Test Test Name Order Date COLONOSCOPY 07/01/2013 COLONOSCOPY 12/13/2019 Insurance Providers Payer Name Payer Address Payer Phone Subscriber Number Group Number Insured Name Patient Relationship to Insured Coverage Start Date Coverage End Date [facility] [address] [place] [address] [phone] [id number] JEFFREY LOVELL Self - patient is the insured MEDICAL (GENERAL) HISTORY Medical History History ICD Code colonoscopy 12/03/13, and fi ve-year followup due to history of tubular adenomas and family history of colon polyps borderline hypertension umbilical hernia Surgical History Surgery Date(Month/Year) left knee replacement umbilical hernia repair 2018
--- OUTSIDE RECORDS SUMMARY | 2024-01-28 18:38 | XMS_ITS ---
Author Organization Nadeem Fairchild DO, [facility] Address [address], [place] [id number] Care Team Providers Care Cheese Cook Name Role Phone Nadeem Fairchild Primary Care Provider ALLERGIES No Known Allergies REASON FOR VISIT physical, annual visit, Follow up hypertension, diet controlled MEDICATIONS Medication SIG (Take, Route, Frequency, Duration) Notes Start Date End Date Status Centrum Men - 1 tablet Orally Once a day Active IMMUNIZATIONS Vaccine Route Administration Date Status Comme nts Influenza Quad IM Intramuscular 11/12/2022 Administered SOCIAL [...] Never (0 point) Points 3 Interpretation Negative VITAL SIGNS BMI 32.21 kg/m2 11/12/2022 Blood pressure systolic 150 mm Hg 11/13/19 23 Blood pressure diastolic 76 mm Hg 023 Heart Rate 108 /min 11/12/2022 Height 71 in 11/12/2022 Weight 231 lbs 11/12/2022 Took sudafed this morning Encounters Encounter Location Date Provider Diagnosis Nadeem Fairchild , [address] [phone] 11/12/2022 Nadeem Fairchild Encounter for genera l adult medical examination without abnormal findings Z00.00 ; Essential hypertension I10 ; FH: prostate cancer Z80.42 ; Vitamin D deficiency E55.9 and Other obesity due to excess calories E66.09 ASSESSMENTS Encounter Date Diagnosis Assessment Notes Treatment Notes Treatment Clinical Notes 11/12/2022 Encounter for general adult medical examination without abnormal findings (ICD-10 - Z00.00) 11/12/2022 Essential hypertension (ICD-10 - I10) Low salt diet 11/12/2022 FH: prostate cancer (ICD-10 - Z80.42) 11/12/2022 Vitamin D deficiency (ICD-10 - E55.9) 11/12/2022 Other obesity due to excess calories (ICD-10 - E66.09) Diet, exercise, weight loss. Needs to decrease his BMI. Goal weight loss of 15 pounds. Decrease carbohydrate intake 11/12/2022 Other Do not use Suda fed. Use Zyrtec or Jana as needed for allergies PLAN OF TREATMENT Medication Medication Name Sig Start Date Stop Date Notes Centrum Men - 1 tablet Orally Once a day Treatment Notes Assessment Notes Essential hypertension Low salt diet Other obesity due to excess calories t, exercise, weight loss. Needs to decrease his BMI. Goal weight loss of 15 pounds. Decrease carbohydrate intake Other Do not use Sudafed. Use Zyrtec or Jana as needed for allergies Next Appt Details Follow Up: 1 Year, Reason: H &P Provider Name:Nadeem Flores sonia, 02/03/2024 02:30:00 PM, [address] [place] [address], [phone], Progress Notes * Examination Category Sub-Category Detail Notes General Examination GENERAL APPEARANCE: well dev eloped, well nourished, in no acute distress HEAD: normocephalic, atrau matic EYES: pupils equal, round, reactive to light and accommodation, sclera non-icteric EARS: auditory canal obscu red with wax, BOTH EARS THROAT: NECK/THYROID: neck supple, full ra nge of motion, no cervical lymphadenopathy, thyroid normal, no carotid bruit HEART: regular rate and rhy thm, S1, S2 normal, no murmurs CHEST: normal LUNGS: clear to auscultatio n bilaterally ABDOMEN: soft, nontender, non distended,bowel sounds present NEUROLOGIC: nonfocal, motor stre ngth normal upper and lower extremities, sensory exam intact SKIN: warm and dry EXTREMITIES: no edema PERIPHERAL PULSES: 2+ dorsalis pedis, 2 + posterior tibial MALE GENITOURINARY no penile lesions or discharge, no testicular mass, testes descended bilaterally, no hernia PSYCH: alert, oriented, cog nitive function intact, cooperative with exam, good eye contact, judgement and insight good ORAL CAVITY: History and Physical Notes * HPI (History of Present Illness) Category Sub-Category Detail Notes Depression Screening PHQ-9 Little inte rest or [...] in the p ast year Communication Needs [facility] Communication Needs - [facility] He aring Impairment?: No Vision Impairment?: Yes wears glasses fo r reading Cognitive Impairment?: No
[2024-01-28 22:54] LABS: Lyme Abs Screen <0.90 index
== END 2024-01-27 07:40 | disposition home or self-care (01) ==
LOC: HO.HMGCLDS 07:39
PROVIDERS: PCP Internal Medicine; Referring Provider Psychiatry & Neurology Neurology; Visit Provider Internal Medicine
DX: Z00.00 Encounter for general adult medical examination without abnormal findings (principal); R41.3 Other amnesia; H91.93 Unspecified hearing loss, bilateral; G31.84 Mild cognitive impairment of uncertain or unknown etiology; Z12.5 Encounter for screening for malignant neoplasm of prostate; Z13.1 Encounter for screening for diabetes mellitus; Z13.220 Encounter for screening for lipoid disorders
CPT/HCPCS: 36415; 80053; 80061; 82607; 83036; 84153; 84443; 85025; 86617; 86618

== ENCOUNTER 2024-03-29 11:00 | Outpatient (AMB) | payer OTHER, SELFPAY ==
--- NOTE | 2024-03-29 10:41 | MHC.PC.OV ---
Intake Visit Reasons: Review lab, neuro, hearing tests [phone] Allergies No Known Allergies Allergy (Verified 01/24/20 10:45) HPI Review lab, neuro, hearing tests [phone] HPI Details 63-year-old male wishes to discuss his medical health via tele health. Patient recently had blood work done in [facility]. He would like to discuss the results. He had complaints of lack of taste. He saw a neurologist, imaging studies (unremarkable), hearing eval (unremarkable) and an ENT provider. Patient is on Zyrtec and getting relief for his allergy symptoms. Symptoms of poor taste has improved. He is at baseline state of health. Patient reports he weighs around 230 lb and is about 6 ft in height. Does not want to go on medications for weight loss. [facility] Medical History HTN (hypertension) Surgical History History of total left knee replacement Hx of arthroscopy of right knee Hx of colonoscopy Hx of umbilical hernia repair Social History Are you a primary director critical care to a significant other at home: No Do you presently have visiting nurse or other home services: No Telehealth Telehealth Telehealth Platform: [facility] Location of provider rendering services: practice address Location of patient: address on file Patient Identification confirmed using: Name, : Yes Telehealth method: voice only Patient verbally consented to treatment: Yes Patient verbally consented to billing insurance company: Yes Patient informed of any privacy concerns related to visit: Yes Minutes spent on Phone/Video with Pt.: 15 Coding Level of Care Code Tele New Pt Level 4 (64870) Complex EM visit Add On G2211 Diagnoses Age[place]ia R43.2 Assessment & Plan Assessment & Plan (1) [place]: Code(s): R43.2 - [place] Plan: Neurology note reviewed. ENT MD suggested Zyrtec which is helping with symptoms. 20 minutes spent reviewing his blood work and discussing in detail
--- OUTSIDE RECORDS SUMMARY | 2024-03-29 12:06 | XMS_ITS | Patient Health Record ---
Author Organization Nadeem Fairchild DO, [facility] Address [address] [place] [phone] Care Team Providers Care Active Directory Systems Administrator Name Role Phone Nadeem Fairchild Primary Care Provider [phone] ALLERGIES No Known Allergies RESULTS Component Value Reference Range Notes Complete Blood Count Auto Di ff Reviewed date:01/27/2024 10:40:29 AM Interpretation:Normal Performing Lab:[facility], [address] [place] [phone] Notes/Report: White Blood Count 6.1 4.8-10.8 X10*3/uL [...] NRBC Abs Auto 0.000 0.0-0.012 X10*3/uL Comprehensive [place]. Panel Fa st Reviewed date:01/27/2024 12:57:12 PM Interpretation:Abnormal Performing Lab:[address] [phone] Notes/Report: Sodium 141 135-145 mmol/L Potassium 4.0 [...] Panel Reviewed date:01/27/2024 12:55:57 PM Interpretation:Abnormal Performing Lab:[address] [phone] Notes/Report: Triglycerides 143 <150 mg/dL Desirable Triglyceride: [...] (Free>4and<10) Reviewed date:01/27/2024 12:56:32 PM Interpretation:Normal Performing Lab:[address] [phone] Notes/Report: PSA,Total (Free>4and<10) 3.56 0.00-4.00 ng/mL A [...] B12 Reviewed date:01/27/2024 12:55:57 PM Interpretation:Normal Performing Lab:[facility], [address] [place] [phone] Notes/Report: Vitamin B12 581 200-900 pg/mL NORMAL 200-900 PG/ML INDETERMINATE 160-199 PG/ML DEFICIENT < 160 PG/ML Thyroid Stimulating Hormone Reviewed date:01/27/2024 12:56:18 PM Interpretation:Abnormal Performing Lab:[facility], [address] [place] [phone] Notes/Report: Thyroid Stimulating Hormone 4.16 0.32-4.0 uIU/ mL Note: A sustained TSH level above 2.5 uIU/mL may warrant further investigation. TSH 3rd Generation ([facility]) Lyme IgG/IgM w/reflex to WB Reviewed date:01/30/2024 03:16:34 PM Interpretation:Negative Performing Lab:[facility], [address] [place] [phone] Notes/Report: Lyme Abs Screen <0.90 Index Interpretation ----- < 0.90 Negative 0.90-1.09 Equivocal > 1.09 Positive As recommended by the Food and Drug Administration (FDA), all samples with positive or equivocal results in a Borrelia burgdorferi antibody screen will be tested using a blot method. Positive or equivocal screening test results should not be interpreted as truly positive until verified as such using a supplemental assay (e.g., B. burgdorferi blot). The screening test and/or blot for B. burgdorferi antibodies may be falsely negative in early stages of Lyme disease, including the period when erythema migrans is apparent. THIS TEST WAS PERFORMED AT: [facility] [address] [place] [phone] JESUS BUSTAMANTE MD Lyme Blot TNP Hemoglobin A1c Reviewed date:01/27/2024 12:55:57 PM Interpretation:Normal Performing Lab:[facility], [address] [place] [phone] Notes/Report: Hemoglobin A1c % 5.6 <6.0 % [...] average glucose, using the formula of the Z3A-Pvgthcm Average Glucose study (ADAG), Diabetes Care, Vol.31,#8, Sep. 2007 REASON FOR REFERRAL Reason Memory loss Word hun jeanna Subtle loss of taste Diagnosis 1 Memory loss (R41.3) Referral Organization Nadeem Kovacs, FACP Referring Provider First Name Nadeem Referring Provider Last Name Devorah Referring Provider Speciality Internal M edicine Referred Provider Robert, M Elder Referred Provider Specialty Neurology General Notes Luci Zaragoza 024 01:34:59 PM EDT > referral faxed; patient notified. Referral Priority Routine Referral Appointment Date 01/22/2024 Reason Hearing loss Tinnitu s Subtle loss of taste Diagnosis 1 Bilateral hearing lo ss, unspecified hearing loss type (H91.93) Referral Organization Nadeem Kovacs, FACP Referring Provider First Name Nadeem Referring Provider Last Name Devorah Referring Provider Speciality Internal M edicine Referred Provider Marlo Allen Referred Provider [...] Problem Vitamin D deficiency (E55.9) Active confirmed 05985472 Problem Other obesity due to excess calories (E66.09) Active confirmed 486851039 Problem Essential hypertension (I10) Active confirmed 47779203 Problem Bilateral impacted cerumen (H61.23) Active confirmed 45416214 Problem Memory loss (R41.3) Active confirmed 11219148 Problem FH: prostate cancer (Z80.42) Active confirmed 566541909 Problem Body mass index [BMI] 31.0-31.9, adult (Z68.31) Active confirmed 219538332 Problem Bilateral hearing loss, unspecified hearing loss type (H91.93) Active confirmed 80774312 Problem PVCs (premature ventricular contractions) (I49.3) Active confirmed 78746342 VITAL SIGNS Heart Rate 77 /min 11/14/2023 Blood pressure diastolic 90 mm Hg 11/19/2023 Height 71.25 in 11/19/2023 Blood pressure systolic 140 mm Hg 11/19/2023 Weight 230 lbs 11/19/2023 BMI 31.85 kg/m2 11/19/2023 Encounters Encounter Location Date Provider Diagnosis Nadeem Fairchild DO, [facility] [address], [place] [phone] 02/03/2024 Nadeem Fairchild DO, [address] [phone] 11/19/2023 Nadeem Fairchild DO, [address] [phone] 11/14/2023 Nadeem Fairchild Encounter for genera l [...] type (ICD-10 - H91.93) PLAN OF TREATMENT No Information Insurance Providers Payer Name Payer Address Payer Phone Subscriber Number Group Number Insured Name Patient Relationship to Insured Coverage Start Date Coverage End Date [employer] [address] [employer] [phone] [id number] Andrea Salinas Self - patient is the insured MEDICAL (GENERAL) HISTORY Medical History History ICD Code hypertension, diet controlled seasonal allergies gastroesophageal reflux disease (GERD) mononucleosis chronic labyrinthitis Palpitations R00.2 Surgical History Surgery Date(Month/Year) wisdom teeth extraction arthroscopic knee surgery, r epair of torn medial meniscus, right knee (Dr. Yuriy Sage) 07/2000 umbilical hernia repair 11/2018
--- OUTSIDE RECORDS SUMMARY | 2024-03-29 12:07 | XMS_ITS ---
Author Organization Nadeem Fairchild DO, FACP Address [address] [place], [place] [phone] Care Team Providers Care Range Mounter Name Role Phone Nadeem Fairchild Primary Care Provider REASON FOR VISIT FYI only VITAL SIGNS BMI 31.85 kg/m2 11/19/2023 Blood pressure systolic 140 mm Hg 11/19/19 24 Blood pressure diastolic 90 mm Hg 024 Height 71.25 in 11/19/2023 Weight 230 lbs 11/19/2023 Encounters Encounter Location Date Provider Diagnosis STACI Cameron DO[address] [phone] 11/19/2023 Nadeem Fairchild PLAN OF TREATMENT No Information
--- OUTSIDE RECORDS SUMMARY | 2024-03-29 12:07 | XMS_ITS | Patient Health Record ---
Author Organization [facility] Address [address] [place] [phone] Care Team Providers Care Rn Transition Name Role Phone Devorah (RETIRED) Nadeem LÓPEZ Primary Care Provid er Unavailable Nathan Arenas Jr Unavailable REASON FOR REFERRAL [...] Problem Colon cancer screening (Z12.11) Active confirmed 674423777 Problem Encounter for other preprocedural examination (Z01.818) Active confirmed 982066949 PLAN OF TREATMENT Future Test Test Name Order Date COLONOSCOPY 07/01/2013 COLONOSCOPY 12/13/2019 Insurance Providers Payer Name Payer Address Payer Phone Subscriber Number Group Number Insured Name Patient Relationship to Insured Coverage Start Date Coverage End Date [employer] [facility] [address] [place] [address] [id number] JEFFREY LOVELL Self - patient is the insured MEDICAL (GENERAL) HISTORY Medical History History ICD Code colonoscopy 12/03/13, and fi ve-year followup due to history of tubular adenomas and family history of colon polyps borderline hypertension umbilical hernia Surgical History Surgery Date(Month/Year) left knee replacement umbilical hernia repair 2018
--- OUTSIDE RECORDS SUMMARY | 2024-03-29 12:07 | XMS_ITS | Clinical Summary ---
Author Organization [facility] Address [address] [place] [address] Phone Care Team Providers Care Traffic Rate Clerk Name Role Phone Unavailable Primary Care Provider Unavailabl e Encounters Date Type Department Care Team Description 02/05/2024 7:40 AM EST - 02/05/2024 11:59 PM EST Hospital Encounter [facility] MRI [address] [place] [address] Mild cognitive impairment of uncertain or unknown etiology Discharge Disposition: Home or Self Care from Last 3 Months Social History Tobacco Use Types Packs/Day Years Used Date Smoking Tobacco: Never Assessed Sex and Gender Information Value Date Recorded Sex Assigned at Not on file Legal Sex Male 7:37 AM EST Gender Identity Not on file Sexual Orientation Not on file Plan of Treatment Health Maintenance Due Date Last Done Comments Pneumococcal Vaccine: 50+ Years (1 of 1 - PCV) 2012 Zoster Vaccines (1 of 2) 2012 DTaP,Tdap,and Td Vaccines (2 - Td or Tdap) 07/03/2013 06/05/2013 Cholesterol Screening (Lipid Panel) 02/05/2024 Colorectal Cancer Screening: Colonoscopy 02/05/2024 Depression Screening 02/05/2024 HIV Screening 02/05/2024 Hepatitis C Screening 02/05/2024 Social Influencers of Health Screening 02/05/2024 RSV Immunization Patients 60+ Years Old (1 - 1-dose 75+ series) 2037 COVID-19 Vaccine Completed 11/28/2023, , 11/14/2021, Additional history exists Influenza Vaccine Completed 11/28/2023, , 11/06/2021, Additional history exists HIB Vaccines Aged Out No longer eligi ble based on patient's age to complete this topic HPV Vaccines Aged Out No longer eligi ble based on patient's age to complete this topic Hepatitis A Vaccines Aged Out No long er eligible based on patient's age to complete this topic Hepatitis B Vaccines Aged Out No long er eligible based on patient's age to complete this topic IPV Vaccines Aged Out No longer eligi ble based on patient's age to complete this topic MMR Vaccines Aged Out No longer eligi ble based on patient's age to complete this topic Meningococcal ACWY Vaccine Aged Out N o longer eligible based on patient's age to complete this topic Meningococcal B Vacine Aged Out No lo nger eligible based on patient's age to complete this topic Pneumococcal Vaccine: Pediatrics (0 to 5 Years) and At-Risk Patients (6 to 64 Years) Aged Out No longer eligible based on patient's age to complete this topic RSV Immunization Patients Under 20 months Aged Out No longer eligible based on patient's age to complete this topic Varicella Vaccines Aged Out No longer eligible based on patient's age to complete this topic Procedures Procedure Name Priority Date/Time Associated Diagnosis Comments MR BRAIN WO CONTRAST Routine 02/05/2024 8:25 AM EST Mild cognitive impairment of uncertain or unknown etiology from Last 3 Months Results * MR Brain wo Contrast (02/05/2024 8:25 AM EST) Anatomical Region Laterality Modality Head and Neck Magnetic Resonan ce 02/05/2024 9:30 AM EST Impressions 02/05/2024 10:05 AM EST Impression: Normal MRI appearance of the brain. -------- FINAL REPORT -------- Dictated By: Sky Alves Dictated Date: 02/05/2024 09:30 ET Assigned Physician: Sky Alves Reviewed and Electronically Signed By: Sky Alves Signed Date: 02/05/2024 10:05 ET Workstation ID: [id number] Transcribed By: Self Edit Transcribed Date: 02/05/2024 09:30 ET Narrative 02/05/2024 10:05 AM EST MRI brain dated 02/05/2024 9:30 AM. HISTORY: MILD COGNITIVE IMPAIRMENT. COMPARISON: None. TECHNIQUE: Multiplanar multisequence MRI of the brain without intravenous contrast administration. FINDINGS: BRAIN: No diffusion abnormality. ??No mass or extra-axial fluid collection. ??No hydrocephalus. ??The major intracranial flow voids are preserved. Age commensurate ventricles and sulci. ORBITS: Normal. SINUSES/MASTOIDS: The right frontal sinus is a plastic in the left is not pneumatized. ??Minimal mucosal thickening in the maxillary antra and ethmoid air cells. ??Moderate left mastoid fluid. ??Layering fluid in the left fossa of Rosenmuller. CALVARIUM: Normal. OTHER: The visualized skull base soft tissues are normal. Procedure Note Sky Alves MD - 02/05/2024 MRI brain dated 02/05/2024 9:30 AM. HISTORY: MILD COGNITIVE IMPAIRMENT. COMPARISON: None. TECHNIQUE: Multiplanar multisequence MRI of the brain without intravenouscontrast administration. FINDINGS: BRAIN: No diffusion abnormality. No mass or extra-axial fluid collection.No hydrocephalus. The major intracranial flow voids are preserved. Agecommensurate ventricles and sulci. ORBITS: Normal. SINUSES/MASTOIDS: The right frontal sinus is a plastic in the left is notpneumatized. Minimal mucosal thickening in the maxillary antra andethmoid air cells. Moderate left mastoid fluid. Layering fluid in theleft fossa of Rosenmuller. CALVARIUM: Normal. OTHER: The visualized skull base soft tissues are normal. IMPRESSION: Impression: Normal MRI appearance of the brain. -------- FINAL REPORT -------- Dictated By: Sky Alves Dictated Date: 02/05/2024 09:30 ET Assigned Physician: Sky Alves Reviewed and Electronically Signed By: Sky Alves Signed Date: 02/05/2024 10:05 ET Workstation ID: [id number] Transcribed By: Self Edit Transcribed Date: 02/05/2024 09:30 ET us Dia Jones MD IMG MRI PROCEDURES Final Re sult from Last 3 Months
--- OUTSIDE RECORDS SUMMARY | 2024-03-29 12:07 | XMS_ITS ---
Author Organization Nadeem Fairchild DO [facility] Address [address] [place] [phone] Care Team Providers Care Mechanical Engineering Teacher Name Role Phone Nadeem Fairchild Primary Care Provider ALLERGIES No Known Allergies REASON FOR REFERRAL Reason Memory loss Word hun jeanna Subtle loss of taste Diagnosis 1 Memory loss (R41.3) Referral Organization Nadeem Kovacs [facility] Referring Provider First Name Nadeem Referring Provider [...] Notes Problem Memory loss (R41.3) Active confirmed 03303116 Problem Bilateral hearing loss, unspecified hearing loss type (H91.93) Active confirmed 67147160 VITAL SIGNS BMI 30.72 kg/m2 11/14/2023 Heart Rate 77 /min 11/14/2023 Height 72 in 11/14/2023 Weight 226.5 lbs 11/14/2023 Encounters Encounter Location Date Provider Diagnosis Nadeem Fairchild , [address] [phone] 11/14/2023 Nadeem Fairchild Encounter for genera l [...] type (ICD-10 - H91.93) PLAN OF TREATMENT Referrals Referral Date Details 01/22/2024 01/22/2024, Memory l oss Word hunger Subtle loss of taste, Basilia Jones 01/27/2024 01/27/2024, Hearing loss Tinnitus Subtle loss of taste, Marlo Allen Next Appt Details Follow Up: 3 Months, Reason: follow up visit,review lab work Progress Notes * Examination Category Sub-Category Detail Notes General Examination GENERAL APPEARANCE: in no ac brea distress, well developed, well nourished LUNGS: breathing [...] Referral Date Referring Provider Referred Provider Not amor 11/14/2023 Nadeem Fairchild M Zubair Memory l oss Word hunger Subtle loss of taste 11/14/2023 Nadeem Fairchild Ram Gopal Hearin g loss Tinnitus Subtle loss of taste
--- OUTSIDE RECORDS SUMMARY | 2024-03-29 12:07 | XMS_ITS ---
Author Organization Nadeem Fairchild DO, [facility] Address [address] [place], [place] [phone] Care Team Providers Care Patient Safety Sitter Name Role Phone Nadeem Fairchild Primary Care Provider [phone] REASON FOR VISIT 3 month f/u Encounters Encounter Location Date Provider Diagnosis Nadeem Fairchild DO, [facility] [phone] 02/03/2024 Nadeem Fairchild PLAN OF TREATMENT No Information
== END 2024-03-29 11:40 | disposition home or self-care (01) ==
LOC: HO.HMCSH 11:00
PROVIDERS: PCP Internal Medicine; Visit Provider Internal Medicine
DX: R43.2 Parageusia (principal)

== ENCOUNTER → 2024-03-29 11:00 | Outpatient (BNVA) | payer OTHER, SELFPAY | PROVIDERS: PCP Internal Medicine; Visit Provider Internal Medicine ==

== ENCOUNTER 2024-09-07 15:30 | Outpatient (AMB) | payer OTHER, SELFPAY ==
--- NOTE | 2024-09-07 15:37 | MHC.PC.OV ---
Vital Signs 09/07/24 15:39 09/07/24 17:17 Height 5 ft 11.26 in Weight 230 lb BMI 31.8 BP 164/84 H 156/67 H Blood Pressure Location Lt brachial Position Sitting Respiration 16 Pulse 80 Pulse Source Pulse Oximeter Temp 98.0 F Temp Source Temporal Artery Scan Pulse Oximetry (%) 99 Oxygen Delivery Method Room Air Intake Visit Reasons: new elevated BP reading (159/90) Dragger Out Required: No Accompanied by: Self / Same As Patient Allergies No Known Allergies Allergy (Verified 09/07/24 17:18) Medication List - Last Reconciled 09/07/24 by Lexi Trinidad PA-C acetaminophen 500 mg PO Q6H PRN [id number] mcg (Centrum Silver Men) 1 tab PO DAILY Tobacco use date assessed: 09/07/24 Dental Screening Dental Screen Date: 09/07/24 Did you have a dental visit in the last 12 months?: Yes Did you have a dental problem in the last 6 months where you did not have access to dental care?: No Was dental information given to patient?: Patient has dentist HPI new elevated BP reading (159/90) HPI Details The patient is a 64-year-old male presenting to establish a new primary care provider as his PCP Dr. Fairchild retired in February. He would like to discuss management of hypertension and prediabetes, as well as preventative care measures. The patient reports a recent diagnosis of stage 2 hypertension following a biometric screening at work. Blood pressure readings have been consistently around 160/90 mmHg, with occasional normalization after rest. The patient attributes higher readings to stress during work hours, particularly between 11:00 AM and 3:00 PM. The patient has a history of borderline blood glucose levels but has never been on medication for diabetes. Recent lab results show a fasting glucose of 103 mg/dL and an A1c of 5.6%, indicating prediabetes. The patient prefers lifestyle modifications over medication to manage blood glucose levels. The patient has a family history of fatty liver disease and acknowledges dietary habits that may contribute to this condition. Liver enzymes are mildly elevated, and the patient is advised to monitor this condition. Preventative care measures include a colonoscopy, which the patient is due for, having last undergone the procedure in January 2020. The patient is to be referred to Dr. Arenas for this procedure. Social History - Employment: Works from home, experiences stress during peak business hours. - Exercise: No specific exercise routine mentioned, but lifestyle modifications are preferred over medication. - Diet: Acknowledges dietary habits that may contribute to fatty liver disease. [facility] Medical History (Updated 09/07/24 @ 17:24 by Lexi Trinidad PA-C) Class 1 obesity with body mass index (BMI) of 31.0 to 31.9 in adult Preventative health care Nonalcoholic fatty liver disease Pre-diabetes Establishing care with new doctor, encounter for HTN (hypertension) Surgical History Hx of arthroscopy of right knee History of total left knee replacement Hx of umbilical hernia repair Hx of colonoscopy (~01/21/20) Family History Father Dementia Cirrhosis of liver Low BP Mother Dementia Social History Housing: House Are you a primary care transition manager to a significant other at home: No Do you presently have visiting nurse or other home services: No Alcohol intake: current Alcohol intake frequency: a few times a week Alcohol type: wine Patient Tobacco Use Status: Never used Tobacco service: No Current occupational status: employed Cognitive needs: No Hearing needs: No Vision needs: Yes (reading glasses) Questionnaire PHQ-9 Over the last 2 weeks, how often have you been bothered by any of the following problems? 1. Little interest or pleasure in doing things: not at all 2. Feeling down, depressed, or hopeless: not at all 3. Trouble falling or staying asleep, or sleeping too much: not at all 4. Feeling tired or having little energy: not at all 5. Poor appetite or overeating: not at all 6. Feeling bad about yourself - or that you are a failure or have let yourself or your family down: not at all 7. Trouble concentrating on things, such as reading the newspaper or watching television: not at all 8. Moving or speaking so slowly that other people could have noticed. Or the opposite - being so fidgety or restless that you have been moving around a lot more than usual: not at all 9. Thoughts that you would be better off or of hurting yourself in some way: not at all Total score: 0 Depression Screening Interpretation: Negative Depression Screening Done: Yes 79841 - PHQ-9 Billing: Yes Source: Developed by Drs. Nadeem Shirley, Stefany Coy, Rex Gage and colleagues, with an educational raji from [employer]. Thrive Questionnaire Date Thrive assessed: 09/07/24 I am a: Patient What is your living situation today?: I have a steady place to live Within the past 12 months, did the food you bought not last and you didn't have the money to get more?: Never true Within the past 12 months, did you worry whether your food would run out before you got money to buy more?: Never true Do you have trouble paying for medicines?: No Do you have trouble getting transportation to medical appointments?: No Do you have trouble paying your heating and electricity bill?: No Do you have trouble taking care of your child, family member or friend?: No Do you have trouble with day-to-day activities such as bathing, preparing meals, shopping, managing finances, etc.?: No Are you currently unemployed and looking for a job?: No Are you interested in more education?: No Please select the resources that you would like help with: None THRIVE Score: 0 AUDIT C Alcohol Use Questionnaire (AUDIT-C) 1. How often do you have a drink containing alcohol?: 2-3 times a week 2. How many drinks containing alcohol do you have on a typical day when you are drinking?: 1 or 2 3. How often do you have six or more drinks on one occasion?: Never Total Score: 3 Score Reviewed/Action Taken: No DONAVAN-7 AMB Questionnaire DONAVAN-7 Date DONAVAN - 7 assessed: 09/07/24 Feeling nervous, anxious, or on edge: 0 = Not at all Not being able to stop or control worryin = Not at all Worrying too much about different things: 0 = Not at all Trouble relaxin = Not at all Being so restless that it is hard to sit still: 0 = Not at all Becoming easily annoyed or irritable: 0 = Not at all Feeling afraid as if something awful might happen: 0 = Not at all Total DONAVAN-7 score (0-4 normal; 5-9 mild; 10-14 moderate; 15-21 severe): 0 Source: Developed by Drs. Nadeem Shirley, Stefany Coy, Rex Gage and colleagues, with an educational raji from [employer]. DONAVAN-7 Assessment Billing DONAVAN-7 Assessment Tool: DONAVAN-7 Assessment 49422 Review of Systems Const Details: - Cardiovascular: Reports elevated blood pressure readings, denies chest pain or palpitations. - Endocrine: Reports borderline blood glucose levels, denies symptoms of diabetes. - Gastrointestinal: Denies abdominal pain or discomfort, acknowledges family history of fatty liver disease. - Musculoskeletal: Denies leg swelling or calf tenderness. Physical exam (Primary Care) Vital Signs: Last Vital Signs Temp 98.0 F 09/07/24 15:39 Pulse 80 09/07/24 15:39 Resp 16 09/07/24 15:39 BP 164/84 H 09/07/24 15:39 Pulse Ox 99 09/07/24 15:39 Oxygen Delivery Method Room Air 09/07/24 15:39 Care Plan Goal for BP management: 140/90 patient to keep blood pressure diary return in 1 month BMI result Body Mass Index 31.8 BMI Assessment/Plan discussion: High BMI High, discussed plan: lifestyle, weight reduction, dietary, physical activity and alcohol moderation Tobacco/Smoking Status: Tobacco use Status Tobacco use date assessed 09/07/24 09/07/24 15:48 Patient Tobacco Use Status Never used Tobacco 09/07/24 15:48 PHQ-9: PHQ-9 Score PHQ-9: Total score 0 09/07/24 16:12 Depression Screening Interpretation: Negative Thrive Assessment: Date of Thrive Assessment Date Thrive assessed 09/07/24 09/07/24 15:48 Const Other: Appearance: Alert. Oriented X3. No acute distress. Head: Normal external exam. Normocephalic. Atraumatic. Eyes: Pupils are equal, round, and reactive to light. Extraocular movements intact. Conjunctiva and sclera normal. Eyelids normal. Throat: Pharynx normal. Uvula midline. Moist mucous membranes. Neck: Normal inspection. Neck supple. Full range of motion. Cardiovascular: Normal heart rate and rhythm. Heart sound normal. No murmurs noted. Pulses normal throughout. Blood pressure consistently around 160/90, with a recent reading of 156/67. Respiratory: No respiratory distress. Painless inspiration. Breath sounds normal. No wheezes/rales/rhonchi noted. Chest nontender. No accessory muscle usage noted or decreased air movement noted. Abdomen: Soft and nontender. No distention noted. No organomegaly noted. Back: No costovertebral angle tenderness. Full range of motion noted. Skin: Skin warm and dry. Normal skin color. Normal skin turgor. No rashes/lesions/lacerations noted. Extremities: No lower extremity edema. Extremities exhibit normal range of motion. Extremities nontender. No leg swelling or calf tenderness noted. Neuro: Oriented X 3. No motor deficit. No sensory deficit. Reflexes normal. Results AMB Hemoglobin A1c AMB Hemoglobin A1c 5.6 % Last Edit by KATLIN Miner on 09/07/24 16:33 Results Reviewed Results Reviewed: - Labs: Fasting glucose 103 mg/dL, A1c 5.6%, liver enzymes mildly elevated, cholesterol levels within normal limits. Coding Level of Care Code New Pt Level 4 (41454) Complex EM visit Add On G2211 Diagnoses Establishing care with new doctor, encounter for Z76.89 Pre-diabetes R73.03 Nonalcoholic fatty liver disease K76.0 Preventative health care Z00.00 HTN (hypertension) I10 Class 1 obesity with body mass index (BMI) of 31.0 to 31.9 in adult E66.811; Z68.31 Additional Codes PHQ-9 - 72264 - PHQ-9 Billing: Yes ([id number]) DONAVAN-7 Assessment Billing - DONAVAN-7 Assessment Tool: DONAVAN-7 Assessment 62857 ([id number]) Assessment & Plan Assessment & Plan (1) Establishing care with new doctor, encounter for: Code(s): Z76.89 - Persons encountering health services in other specified circumstances Category: Medical (2) Pre-diabetes: Code(s): R73.03 - Prediabetes Category: Medical Plan: The patient is encouraged to adopt lifestyle changes, focusing on diet and exercise, to manage blood glucose levels and prevent progression to diabetes. A follow-up appointment is suggested to monitor blood glucose levels and assess the effectiveness of lifestyle interventions. (3) Nonalcoholic fatty liver disease: Code(s): K76.0 - Fatty (change of) liver, not elsewhere classified Category: Medical Plan: The patient is advised to monitor liver function tests and consider dietary modifications to manage fatty liver disease. Further evaluation may be necessary if liver enzyme levels remain elevated. (4) Preventative health care: Code(s): Z00.00 - Encounter for general adult medical examination without abnormal findings Category: Medical Plan: The patient is due for a colonoscopy and will be referred to Dr. Arenas for the procedure. The procedure is to be scheduled to ensure timely completion of preventative care. (5) HTN (hypertension): Code(s): I10 - Essential (primary) hypertension Category: Medical Plan: The patient is advised to monitor blood pressure at home and return for a follow-up in one month to reassess the need for medication. Lifestyle modifications, including stress management and dietary changes, are recommended to help control blood pressure. (6) Class 1 obesity with body mass index (BMI) of 31.0 to 31.9 in adult: Code(s): E66.811 - Obesity, class 1; Z68.31 - Body mass index [BMI] 31.0-31.9, adult Category: Medical Plan: Patient to improve diet and exercise regimen. Condition is chronic and stable continue to monitor. Plan Plan Patient was informed and verbally consented to the use of an ambient scribe for clinic note documentation during this visit. 1. Essential Hypertension The patient is advised to monitor blood pressure at home and return for a follow-up in one month to reassess the need for medication. Lifestyle modifications, including stress management and dietary changes, are recommended to help control blood pressure. 2. Prediabetes The patient is encouraged to adopt lifestyle changes, focusing on diet and exercise, to manage blood glucose levels and prevent progression to diabetes. A follow-up appointment is suggested to monitor blood glucose levels and assess the effectiveness of lifestyle interventions. 3. Fatty Liver Disease The patient is advised to monitor liver function tests and consider dietary modifications to manage fatty liver disease. Further evaluation may be necessary if liver enzyme levels remain elevated. 4. Preventative Care: Colon Cancer Screening The patient is due for a colonoscopy and will be referred to Dr. Arenas for the procedure. The procedure is to be scheduled to ensure timely completion of preventative care. During the visit, we discussed the importance of managing hypertension through lifestyle changes and monitoring blood pressure at home. We also reviewed dietary modifications to manage prediabetes and fatty liver disease, emphasizing the role of diet and exercise. The patient was informed about the need for a colonoscopy and agreed to a referral to Dr. Arenas for the procedure. Orders: Orders Comprehensive Lawrence. Panel Fast Today Z00.00 - Encounter for general adult medical examination without abnormal findings TSH reflex Free T4 Today Z00.00 - Encounter for general adult medical examination without abnormal findings Magnesium Today Z00.00 - Encounter for general adult medical examination without abnormal findings Liver Panel Today Z00.00 - Encounter for general adult medical examination without abnormal findings C Reactive Protein Today Z00.00 - Encounter for general adult medical examination without abnormal findings Complete Blood Count Auto Diff Today Z00.00 - Encounter for general adult medical examination without abnormal findings Lipid Panel Today Z00.00 - Encounter for general adult medical examination without abnormal findings PSA,Total (Free>4and<10) Today Z00.00 - Encounter for general adult medical examination without abnormal findings Vitamin B12 and Folate Today Z00.00 - Encounter for general adult medical examination without abnormal findings Vitamin D 25-OH Total Today Z00.00 - Encounter for general adult medical examination without abnormal findings AMB Hemoglobin A1c Today Z13.9 - Encounter for screening, unspecified Referrals Gastroenterology Referral Z12.11 - Encounter for screening for malignant neoplasm of colon Patient Instructions: - Monitor blood pressure at home and return for a follow-up in one month. - Implement lifestyle changes, including stress management and dietary modifications, to manage hypertension and prediabetes. - Follow dietary recommendations to manage fatty liver disease. - Schedule and complete a colonoscopy with Dr. Arenas.
[2024-09-07 15:39] VITALS: BP 164/84; PULSE 80; RESP 16; TEMP 36.7; O2SAT 99; BMI 31.8
--- OUTSIDE RECORDS SUMMARY | 2024-09-07 16:20 | XMS_ITS | Clinical Summary ---
Author Organization [facility] Address [address] [place] [id number] Phone Care Team Providers Care Bulb Tester Name Role Phone Devorah Nadeem Basilia LÓPEZ Primary Care Provider Allergies No known active allergies Medications acetaminophen (TYLENOL) 325 mg tablet Take 2 tablets (650 mg total) by mouth every 4 (four) hours as needed for mild pain. 0 9 Active Additional Information Patient not taking.Reported on 12/02/2018 ibuprofen (ADVIL,MOTRIN) 200 MG tablet Take 2 tablets (400 mg total) by mouth every 6 (six) hours as needed for pain (specific location in comments). 9 Active Additional Information Patient not taking.Reported on 12/02/2018 Active Problems No known active problems Resolved Problems Problem Noted Date Diagnosed Date Resolved Date Incarcerated umbilical hernia 10/29/2018 12/02/2018 Assessment & Plan (10/29/2018 2:39 PM EDT): The patient has an incarcerated umbilical hernia. I had a conversation with the patient today with regard to laparoscopic versus open hernia repair surgery. The risks and benefits of hernia repair including but not limited to the risks of infection, mesh infection, bleeding, chronic pain, recurrence, and scar, as well as the need for an open procedure, pain from the andree, damage to organs and heart/lung risks of anesthesia if done laparoscopically have been explained to the patient. The patient understands these risks and wishes to proceed. The patient also understands that the skin in the area is thin and that he could be left with a nonaesthetic result, such as a lump, bulge, scar and/or skin changes at the repair site. I would recommend open repair with mesh which he agrees with and wishes to proceed. The patient understands the signs and symptoms of hernia strangulation and will seek immediate medical attention should a pinching feeling or severe pain in the area of the hernia, fever, chills, nausea, and/or vomiting develop. Family History Medical History Relation Comments Diabetes type II Father Prostate cancer Father Stroke Father CVA Bipolar disorder Mother Melanoma Mother Relation Status Comments Father Mother Social History Tobacco Use Types Packs/Day Years Used Date Smoking Tobacco: Never Smokeless Tobacco: Never Alcohol Use Standard Drinks/Week Comments Yes 0 (1 standard drink = 0.6 oz pur e alcohol) a couple times a week Education Answer Date Recorded Are you interested in more education? Not on tommie e 06/14/2022 Are you concerned about learning? Not on file 06/14/2022 No 06/14/2022 No 06/14/2022 Digital Access Answer Date Recorded No 07/13/2022 No 07/13/2022 No 07/13/2022 Reliable internet access at home? Not on file 07/13/2022 Device with a working camera? Not on file Sex and Gender Information Value Date Recorded Sex Assigned at Not on file Legal Sex Male 12:26 PM EDT Gender Identity Not on file Sexual Orientation Not on file Last Filed Vital Signs Vital Sign Reading Time Taken Comments Blood Pressure 130/66 12/02/2018 9:09 AM EDT Pulse 83 12/02/2018 9:09 AM EDT Temperature 36.7 C (98.1 F) 12/02/2018 9:09 AM EDT Respiratory Rate 16 11/18/2018 2:15 PM EDT Oxygen Saturation 95% 12/02/2018 9:09 AM EDT Inhaled Oxygen Concentration - - Weight 104.3 kg (230 lb) 11/18/2018 10:28 AM EDT Height 182.9 cm (6') 11/18/2018 10:28 AM EDT Body Mass Index 31.19 11/18/2018 10:28 AM EDT Plan of Treatment Health Maintenance Due Date Last Done Comments LIPID PANEL 1962 DEPRESSION SCREENING 1974 HEPATITIS C SCREENING 1980 HIV ONE-TIME SCREENING (18-6 5 YEARS) 1980 COLOGUARD 06/11/2007 COLONOSCOPY 06/11/2007 COLORECTAL CANCER SCREENING 06/11/2007 FIT TEST 06/11/2007 FOBT 06/11/2007 SIGMOIDOSCOPY 06/11/2007 VIRTUAL COLONOSCOPY 06/11/2007 PNEUMOCOCCAL VACCINES (50+ y ears) (1 of 1 - PCV) 2012 ZOSTER VACCINES (1 of 2) 2012 Adult Td,Tdap Booster 06/06/2023 06/05/2013 COVID-19 VACCINE (2 - 2023-2 5 season) 2023 03/26/2020 RSV VACCINE (1 - 1-dose 75+ series) 2037 SMOKING STATUS SCREENING (On ce After 26 Yrs) Completed 12/02/2018 HEPATITIS A VACCINES Aged Out No long er eligible based on patient's age to complete this topic HIB VACCINES Aged Out No longer eligi ble based on patient's age to complete this topic MENINGOCOCCAL VACCINES (ACWY) Aged Out No longer eligible based on patient's age to complete this topic MENINGOCOCCAL VACCINES (B) Aged Out N o longer eligible based on patient's age to complete this topic Medical Devices Implanted Type Area Loom Checker Device Identifier Shelf Expiration Date Model / Serial / Lot Mesh Surgical 1 in Hernia Prolene 3d Polypropylene Patch - [id number] Implanted:Qty: 1 on 11/18/2018 by Claudia Garrett MD at [facility] STANDARD Umbilical [employer] / DIVISION OF J 05/17/2022 [id number] / / [id number] Insurance CIGNA PPO CIGNA PPO Member Subscriber Plan / Payer ( fective 2004-Present) Name:Andrea Guidry Relation to Subscriber:Self Name:Andrea Guidry Payer ID:[id number] (NA) Type:PPO Address: [address] [place] [phone] CIG[employer] PPO Member Subscriber Plan / Payer ( fective 2004-Present) Name:Andrea Guidry Relation to Subscriber:Self Name:Andrea Guidry Payer ID:[id number] (NA) Type:PPO Address: [address] [place] [phone] CIGNA PPO CIGNA PPO Member Subscriber Plan / Payer (Ef fective 2004-Present) Name:Andrea Guidry Relation to Subscriber:Self Name:Andrea Guidry Payer ID:[id number] (NA) Type:PPO Address: [address] [place] [phone] C[employer] [place] [id number] CIGNA PPO [id number] Advance Directives For more information, please contact: [phone] (9AM - 5PM [facility], Friday-Friday) * Full Code (Presumed) (Latest Code Status on File) Date Activated Date Inactivated Comments 11/18/2018 10:12 AM 11/18/2018 4:35 PM Care Teams Bulb Tester Relationship Specialty Start Date End Date Nadeem Fairchild DO [address] [place] [id number] PCP - General Internal Medicine 10/27/18 Additional Source Comments The information contained in this document represents components of the legal health record. It is not the complete legal health record.[facility]
--- OUTSIDE RECORDS SUMMARY | 2024-09-07 16:20 | XMS_ITS | Clinical Summary ---
Author Organization [facility] Address [address] [place] [address] Phone Care Team Providers Care Network Support Name Role Phone Unavailable Primary Care Provider Unavailabl e Social History Tobacco Use Types Packs/Day Years [...] Td Vaccines (2 - Td or Tdap) 06/06/2023 06/05/2013 Cholesterol Screening (Lipid Panel) 02/05/2024 Colorectal Cancer Screening: Colonoscopy 02/05/2024 HIV Screening 02/05/2024 Hepatitis C Screening 02/05/2024 Social Influencers of Health Screening 02/05/2024 Depression Screening 02/18/2024 Influenza Vaccine (#1) 2024 , 11/12/2022, 11/06/2021, Additional history exists RSV Immunization Adult Patients (1 - 1-dose 75+ series) 2037 COVID-19 Vaccine Completed 11/28/2023, , 11/14/2021, Additional history exists HIB Vaccines Aged Out [...] age to complete this topic Meningococcal B Vaccine Aged Out No l onger eligible based on patient's age to complete this topic RSV Immunization Patients Under 20 months Aged Out No longer eligible based on patient's age to complete this topic Varicella Vaccines Aged Out No longer eligible based on patient's age to complete this topic
[2024-09-07 17:17] VITALS: BP 156/67
== END 2024-09-07 16:32 | disposition home or self-care (01) ==
LOC: HO.HMCSH 15:30
PROVIDERS: PCP Internal Medicine; Visit Provider Physician Assistant Medical
DX: Z76.89 Persons encountering health services in other specified circumstances (principal); R73.03 Prediabetes; K76.0 Fatty (change of) liver, not elsewhere classified; Z00.00 Encounter for general adult medical examination without abnormal findings; I10 Essential (primary) hypertension; E66.811 Obesity, class 1; Z68.31 Body mass index [BMI] 31.0-31.9, adult; Z13.9 Encounter for screening, unspecified

== ENCOUNTER → 2024-09-07 15:30 | Outpatient (BNVA) | payer OTHER, SELFPAY | PROVIDERS: PCP Internal Medicine; Visit Provider Physician Assistant Medical | DX: Z00.00 Encounter for general adult medical examination without abnormal findings (principal); R73.03 Prediabetes; K76.0 Fatty (change of) liver, not elsewhere classified; I10 Essential (primary) hypertension; E66.811 Obesity, class 1; Z76.89 Persons encountering health services in other specified circumstances; Z68.31 Body mass index [BMI] 31.0-31.9, adult | CPT/HCPCS: 83036; 96127 ==

== ENCOUNTER 2024-11-11 07:54 | Outpatient (REF) | payer OTHER, SELFPAY ==
--- OUTSIDE RECORDS SUMMARY | 2024-11-11 07:58 | XMS_ITS | Clinical Summary ---
Author Organization [facility] Address [address] [place] [phone] Phone Care Team Providers Care Commercial Carpenter Name Role Phone Devorah Nadeem Basilia LÓPEZ [...] HEPATITIS C SCREENING 1980 HIV ONE-TIME SCREENING (18-65 YEARS) 1980 COLOGUARD 06/11/2007 COLONOSCOPY 06/11/2007 COLORECTAL CANCER SCREENING 06/11/2007 FIT TEST 06/11/2007 FOBT 06/11/2007 SIGMOIDOSCOPY 06/11/2007 VIRTUAL COLONOSCOPY 06/11/2007 PNEUMOCOCCAL VACCINES (50+ years) (1 of 1 - PCV) 2012 ZOSTER VACCINES (1 of 2) 2012 Adult Td,Tdap Booster 06/06/2023 06/05/2013 INFLUENZA VACCINE (#1) 2024 9, 10/24/2017, 10/23/2016, Additional history exists COVID-19 VACCINE (2 - 2024- season) 2024 03/26/2020 RSV VACCINE (1 - 1-dose 75+ series) 2037 SMOKING STATUS SCREENING (Once After 26 Yrs) Completed 12/02/2018 HEPATITIS A [...] this topic Medical Devices Implanted Type Area Administration Professional Device Identifier Shelf Expiration Date Model / Serial / Lot Mesh Surgical 1 in Hernia Prolene 3d Polypropylene Patch - [id number] Implanted:Qty: 1 on 11/18/2018 by Claudia Garrett MD at [facility] STANDARD Umbil[employer] / DIVISION OF J 05/17/2022 [id number] / / [id number] Insurance CIGGIUSEPPE PPO CIGNA PPO Member Subscriber Plan / Payer ( fective 2004-Present) Name:Andrea Guidry Relation to Subscriber:Self Name:Andrea Guidry Payer ID:[id number] ([facility]) Type:PPO Address: [address] [place] [id number] CIGNA PPO CIGNA PPO CIGNA PPO CIGNA PPO CIGNA PPO CIGNA PPO CIGGIUSEPPE PPO Advance Directives For more information, please contact: [phone] (9AM - 5PM [facility], Friday-Friday) * Full Code (Presumed) (Latest Code Status on File) Date Activated Date Inactivated Comments 11/18/2018 10:12 AM 11/18/2018 4:35 PM Care Teams Commercial Carpenter Relationship Specialty Start Date End Date Nadeem Fairchild DO [address] [place] [phone] PCP - General Internal Medicine 10/27/18 Additional Source Comments The information contained in this document represents components of the legal health record. It is not the complete legal health record.[facility]
--- OUTSIDE RECORDS SUMMARY | 2024-11-11 07:58 | XMS_ITS | Clinical Summary ---
Author Organization [facility] Address [address] [place] [address] Phone Care Team Providers Care Screen Printing Equipment Setter Name Role Phone Unavailable Primary Care Provider [...]
--- OUTSIDE RECORDS SUMMARY | 2024-11-11 07:58 | XMS_ITS | Encounter Summary ---
Author Organization [facility] Address [address] [address] Phone Care Team Providers Care Sales And Service Advisor Name Role Phone Nadeem Fairchild DO Primary Care Provider Encounter Details Date Type Department Care Team (Late st Contact Info) Description 11/18/2018 Procedure Pass OR Admitting Dept - Virtual Department [address] [place] [address] Social History Tobacco Use Types Packs/Day Years Used Date Smoking Tobacco: Never Smokeless Tobacco: Never Alcohol Use Standard Drinks/Week Comments Yes 0 (1 standard drink = 0.6 oz pur e alcohol) a couple times a week Sex and Gender Information Value Date Recorded Sex Assigned at Not on file Legal Sex Male 12:26 PM EDT Gender Identity Not on file Sexual Orientation Not on file documented as of this encounter Plan of Treatment Not on file documented as of this encounter Visit Diagnoses Not on filedocumented in this encounter Care Teams Sales And Service Advisor Relationship Specialty Start Date End Date Nadeem Fairchild DO [address] [place] [phone] PCP - General Internal Medicine 10/27/18 documented as of this encounter Additional Source Comments The information contained in this document represents components of the legal health record. It is not the complete legal health record.[facility]
[2024-11-11 10:30] LABS: MANUAL DIFF FLAG NO
[2024-11-11 10:44] LABS: Hematocrit 41.4 % (42.0-52.0); Hemoglobin 14.8 g/dl (14.0-18.0); Imm Gran Abs Auto 0.01 X10*3/uL (0.00-0.03); Imm Gran Pct Auto 0.2 % (0.0-0.4); Lymphocytes Absolute Auto 1.7 X10*3/uL (1.2-4.9); Mean Corpuscular HGB Conc 35.7 g/dl (31.0-36.0); Mean Corpuscular Hemoglobin 33.2 pg (27.0-33.0); Mean Corpuscular Volume 92.8 fL (80.0-98.0); NRBC Abs Auto 0.000 X10*3/uL (0.0-0.012); NRBC Pct Auto 0.0 /100WBC (0.0-0.2); Platelet Count 188 X10*3/uL (160-400); Red Blood Count 4.46 X10*6/uL (4.60-5.80); White Blood Count 6.3 X10*3/uL (4.8-10.8)
[2024-11-11 11:15] LABS: Alanine Aminotransferase 60 U/L (0-40); Albumin Level 4.5 g/dL (3.5-5.0); Alkaline Phosphatase 55 U/L (39-117); Anion Gap 8 (12-20); Aspartate Amino Transferase 42 U/L (5-37); Blood Urea Nitrogen 15 mg/dL (9-16); Calcium 9.1 mg/dL (8.4-10.2); Carbon Dioxide 29 mmol/L (22-29); Chloride 107 mmol/L (96-108); Cholesterol 161 mg/dL (<200); Estimated Glomerular Filt Rate > 60; HDL Cholesterol 31 mg/dL (>40); Magnesium 2.3 mg/dL (1.6-2.6); Potassium 4.4 mmol/L (3.3-5.1); Sodium 140 mmol/L (135-145); Total Protein 7.1 g/dL (6.5-8.0); Triglycerides 158 mg/dL (<150)
[2024-11-11 11:16] LABS: PSA,Total (Free>4and<10) 5.04 ng/mL (0.00-4.00)
[2024-11-11 11:26] LABS: Folate 14.3 ng/mL (> or = 4.0); Vitamin B12 590 pg/mL (200-900)
[2024-11-12 12:09] LABS: Free Prostate Spec Ag 0.7 ng/mL; Percent Free Prostate Spec Ag 16 % (calc) (>25)
== END 2024-11-11 07:55 | disposition home or self-care (01) ==
LOC: HO.HMGCLDS 07:54
PROVIDERS: PCP Internal Medicine; Visit Provider Physician Assistant Medical
DX: Z00.00 Encounter for general adult medical examination without abnormal findings (principal); Z12.5 Encounter for screening for malignant neoplasm of prostate; Z13.6 Encounter for screening for cardiovascular disorders; Z13.29 Encounter for screening for other suspected endocrine disorder
CPT/HCPCS: 36415; 80053; 80061; 80076; 82248; 82306; 82607; 82746; 83735; 84153; 84154; 84443; 85025; 86140

== ENCOUNTER 2024-11-30 13:08 | Outpatient (AMB) | payer OTHER, SELFPAY ==
[2024-11-30 13:11] VITALS: BP 150/90; PULSE 68; RESP 16; TEMP 36.1; O2SAT 98; BMI 32.2
--- NOTE | 2024-11-30 13:11 | MHC.PC.OV ---
Vital Signs 11/30/24 13:11 Height 5 ft 11.26 in Weight 232 lb 8 oz BMI 32.2 BP 150/90 H Blood Pressure Location Lt brachial Position Sitting Respiration 16 Pulse 68 Pulse Source Pulse Oximeter Temp 97 F Temp Source Temporal Artery Scan Pulse Oximetry (%) 98 Oxygen Delivery Method Room Air Intake Visit Reasons: Physical Hogshead Mat Assembler Required: No Accompanied by: Self / Same As Patient Allergies No Known Allergies Allergy (Verified 11/30/24 13:26) Medication List - Last Reconciled 11/30/24 by Lexi Trinidad PA-C acetaminophen 500 mg PO Q6H PRN [id number]-[id number] 555-67-330-300 mcg (Centrum Silver Men) 1 tab PO DAILY Tobacco use date assessed: 11/30/24 Dental Screening Dental Screen Date: 11/30/24 Did you have a dental visit in the last 12 months?: Yes Did you have a dental problem in the last 6 months where you did not have access to dental care?: No Was dental information given to patient?: Patient has dentist HPI Physical HPI Details The patient is a 64-year-old male presenting for an annual physical examination and review of recent blood work results. The patient has a history of elevated prostate-specific antigen (PSA) levels, with the most recent test showing a level of 5.04, which is above the normal threshold of 4.0. A referral to urology has been made for further evaluation, as the PSA level has increased from the previous year. The patient exhibits mild anemia, with red blood cell counts noted to be low since 2022. The patient consumes alcohol socially, which may contribute to the anemia, but no specific treatment is currently planned. The patient's liver enzymes are slightly elevated, a condition that has been consistent over time and may be related to alcohol consumption. No immediate intervention is required as this has been a stable finding. The patient has hypertriglyceridemia, with triglyceride levels slightly elevated. Dietary modifications have been recommended to manage this condition. The patient has a history of hypertension, with recent blood pressure readings of 166/90 mmHg and 150/90 mmHg. The patient is hesitant to start medication and prefers to manage the condition with dietary changes. The patient's thyroid function, previously abnormal, has returned to normal without medication. Preventative care includes an upcoming colonoscopy scheduled with Dr. Arenas. Social History - Alcohol Consumption: Social drinker, does not consume alcohol daily - Exercise: No specific exercise routine mentioned [facility] Medical History (Updated 11/30/24 @ 16:59 by Lexi Trinidad PA-C) Hypertriglyceridemia Elevated liver enzymes Anemia Annual physical exam Elevated PSA Class 1 obesity with body mass index (BMI) of 31.0 to 31.9 in adult Preventative health care Nonalcoholic fatty liver disease Pre-diabetes Establishing care with new doctor, encounter for HTN (hypertension) Surgical History Hx of arthroscopy of right knee History of total left knee replacement Hx of umbilical hernia repair Hx of colonoscopy (~01/21/20) Family History Father Dementia Cirrhosis of liver Low BP Mother Dementia Social History Housing: House Are you a primary transition of care specialist to a significant other at home: No Do you presently have visiting nurse or other home services: No Alcohol intake: current Alcohol intake frequency: a few times a week Alcohol type: wine Patient Tobacco Use Status: Never used Tobacco service: No Current occupational status: employed Cognitive needs: No Hearing needs: No Vision needs: Yes (reading glasses) Questionnaire PHQ-9 Over the last 2 weeks, how often have you been bothered by any of the following problems? 1. Little interest or pleasure in doing things: not at all 2. Feeling down, depressed, or hopeless: not at all 3. Trouble falling or staying asleep, or sleeping too much: not at all 4. Feeling tired or having little energy: not at all 5. Poor appetite or overeating: not at all 6. Feeling bad about yourself - or that you are a failure or have let yourself or your family down: not at all 7. Trouble concentrating on things, such as reading the newspaper or watching television: not at all 8. Moving or speaking so slowly that other people could have noticed. Or the opposite - being so fidgety or restless that you have been moving around a lot more than usual: not at all 9. Thoughts that you would be better off or of hurting yourself in some way: not at all Total score: 0 Depression Screening Interpretation: Negative Depression Screening Done: Yes 55158 - PHQ-9 Billing: Yes Source: Developed by Drs. Nadeem Shirley, Stefany Coy, Rex Gage and colleagues, with an educational raji from [employer]. Thrive Questionnaire Date Thrive assessed: 11/30/24 I am a: Patient What is your living situation today?: I have a steady place to live Within the past 12 months, did the food you bought not last and you didn't have the money to get more?: Never true Within the past 12 months, did you worry whether your food would run out before you got money to buy more?: Never true Do you have trouble paying for medicines?: No Do you have trouble getting transportation to medical appointments?: No Do you have trouble paying your heating and electricity bill?: No Do you have trouble taking care of your child, family member or friend?: No Do you have trouble with day-to-day activities such as bathing, preparing meals, shopping, managing finances, etc.?: No Are you currently unemployed and looking for a job?: No Are you interested in more education?: No Please select the resources that you would like help with: None THRIVE Score: 0 AUDIT C Alcohol Use Questionnaire (AUDIT-C) 1. How often do you have a drink containing alcohol?: 2-3 times a week 2. How many drinks containing alcohol do you have on a typical day when you are drinking?: 1 or 2 3. How often do you have six or more drinks on one occasion?: Never Total Score: 3 Score Reviewed/Action Taken: No DONAVAN-7 AMB Questionnaire DONAVAN-7 Date DONAVAN - 7 assessed: 11/30/24 Feeling nervous, anxious, or on edge: 0 = Not at all Not being able to stop or control worryin = Not at all Worrying too much about different things: 0 = Not at all Trouble relaxin = Not at all Being so restless that it is hard to sit still: 0 = Not at all Becoming easily annoyed or irritable: 0 = Not at all Feeling afraid as if something awful might happen: 0 = Not at all Total DONAVAN-7 score (0-4 normal; 5-9 mild; 10-14 moderate; 15-21 severe): 0 Source: Developed by Drs. Nadeem Shirley, Stefany Coy, Rex Gage and colleagues, with an educational raji from [employer]. DONAVAN-7 Assessment Billing DONAVAN-7 Assessment Tool: DONAVAN-7 Assessment 98469 Review of Systems Const Details: - Cardiovascular: Denies chest pain, orthopnea, or syncope - Respiratory: Denies dyspnea - Gastrointestinal: Denies black or bloody stools, unintentional weight loss - Genitourinary: Denies dysuria - Neurological: Denies headaches, dizziness, or balance issues All systems reviewed & are unremarkable except as noted in HPI and below Physical exam (Primary Care) Vital Signs: Last Vital Signs Temp 97 F 11/30/24 13:11 Pulse 68 11/30/24 13:11 Resp 16 11/30/24 13:11 BP 150/90 H 11/30/24 13:11 Pulse Ox 98 11/30/24 13:11 Oxygen Delivery Method Room Air 11/30/24 13:11 Care Plan Goal for BP management: <140/90 patient to improve diet and will return in 1 month with blood pressure diary BMI result Body Mass Index 32.2 BMI Assessment/Plan discussion: High BMI High, discussed plan: lifestyle, weight reduction, dietary, physical activity, alcohol moderation and other Tobacco/Smoking Status: Tobacco use Status Tobacco use date assessed 11/30/24 11/30/24 13:16 Patient Tobacco Use Status Never used Tobacco 11/30/24 13:16 PHQ-9: PHQ-9 Score PHQ-9: Total score 0 11/30/24 13:58 Depression Screening Interpretation: Negative Thrive Assessment: Date of Thrive Assessment Date Thrive assessed 11/30/24 11/30/24 13:16 Const Other: Appearance: Alert. Oriented X3. No acute distress. Head: Normal external exam. Normocephalic. Atraumatic. Eyes: Pupils are equal, round, and reactive to light. Extraocular movements intact. Conjunctiva and sclera normal. Eyelids normal. Ears: External auditory canal normal. Tympanic membranes normal. A little bit of wax noted, but otherwise clear. Throat: Pharynx normal. Uvula midline. Moist mucous membranes. Neck: Normal inspection. Neck supple. Full range of motion. No adenopathy. Thyroid Normal. No meningeal signs. No neck mass noted. Cardiovascular: Normal heart rate and rhythm. Heart sound normal. No murmurs noted. Pulses normal throughout. Blood pressure was 166/90 initially, rechecked at 150/90. Respiratory: No respiratory distress. Painless inspiration. Breath sounds normal. No wheezes/rales/rhonchi noted. Chest nontender. No accessory muscle usage noted or decreased air movement noted. Abdomen: Soft and nontender. Bowel sounds normal in all 4 quadrants. No distention noted. No organomegaly noted. No visible injury noted. Back: No costovertebral angle tenderness. Full range of motion noted. Skin: Skin warm and dry. Normal skin color. Normal skin turgor. No rashes/lesions/lacerations noted. Extremities: No lower extremity edema. Extremities exhibit normal range of motion. Extremities nontender. Neuro: Oriented X 3. No motor deficit. No sensory deficit. Reflexes normal. Results Reviewed Results Reviewed: - Labs: PSA level at 5.04, elevated from previous year - Labs: Red blood cell count at 4.46, indicating mild anemia - Labs: Slightly elevated liver enzymes - Labs: Elevated triglycerides Coding Level of Care Code Est Pt Level 4 (06452) Est Pt Prev Care 40-64y(84651) Diagnoses Annual physical exam Z00.00 Elevated PSA R97.20 Anemia D64.9 Elevated liver enzymes R74.8 Hypertriglyceridemia E78.1 HTN (hypertension) I10 Additional Codes DONAVAN-7 Assessment Billing - DONAVAN-7 Assessment Tool: DONAVAN-7 Assessment 02030 ([id number]) PHQ-9 - 20007 - PHQ-9 Billing: Yes ([id number]) Time Spent (min) 50 Assessment & Plan Assessment & Plan (1) Annual physical exam: Code(s): Z00.00 - Encounter for general adult medical examination without abnormal findings Category: Medical (2) Elevated PSA: Code(s): R97.20 - Elevated prostate specific antigen [PSA] Category: Medical Plan: The patient has been referred to urology for further evaluation of elevated PSA levels, which have increased from the previous year. (3) Anemia: Code(s): D64.9 - Anemia, unspecified Category: Medical Plan: The patient exhibits mild anemia, potentially related to social alcohol consumption, but no specific treatment is planned at this time. (4) Elevated liver enzymes: Code(s): R74.8 - Abnormal levels of other serum enzymes Category: Medical Plan: The patient's liver enzymes are slightly elevated, likely due to alcohol consumption, but no immediate intervention is required as this has been a stable finding. (5) Hypertriglyceridemia: Code(s): E78.1 - Pure hyperglyceridemia Category: Medical Plan: Dietary modifications have been recommended to manage elevated triglyceride levels. (6) HTN (hypertension): Code(s): I10 - Essential (primary) hypertension Category: Medical Plan: The patient is advised to manage hypertension through dietary changes and will monitor blood pressure at home, with a follow-up visit scheduled in a month. Plan Plan Patient was informed and verbally consented to the use of an ambient scribe for clinic note documentation during this visit. 1. Elevated Prostate-Specific Antigen (Psa) The patient has been referred to urology for further evaluation of elevated PSA levels, which have increased from the previous year. 2. Anemia The patient exhibits mild anemia, potentially related to social alcohol consumption, but no specific treatment is planned at this time. 3. Elevated Liver Enzymes The patient's liver enzymes are slightly elevated, likely due to alcohol consumption, but no immediate intervention is required as this has been a stable finding. 4. Hypertriglyceridemia Dietary modifications have been recommended to manage elevated triglyceride levels. 5. Hypertension The patient is advised to manage hypertension through dietary changes and will monitor blood pressure at home, with a follow-up visit scheduled in a month. 6. Thyroid Function Normalization The patient's thyroid function has normalized without medication, and no further action is required at this time. During the visit, we discussed the elevated PSA levels and the need for a urology referral. I explained the potential implications of the PSA increase and the importance of further evaluation. We also reviewed the patient's mild anemia and elevated liver enzymes, noting that these may be related to alcohol consumption but do not require immediate intervention. Dietary changes were recommended to address hypertriglyceridemia and hypertension, with a plan to monitor blood pressure at home and follow up in a month. The normalization of thyroid function was acknowledged, and no further action is needed at this time. Medications: New [id number] 724-80-980-300 mcg (Centrum Silver Men) 1 tab PO DAILY 90 tabs 3RF Patient Instructions: - Follow up with urology for elevated PSA levels. - Monitor blood pressure at home and return for a follow-up visit in a month. - Implement dietary changes to manage triglyceride levels and hypertension. - Continue to avoid excessive alcohol consumption.
--- OUTSIDE RECORDS SUMMARY | 2024-11-30 15:52 | XMS_ITS | Clinical Summary ---
Author Organization [facility] Address [address] [place] [address] Phone Care Team Providers Care Transition Coach Name Role Phone Unavailable Primary Care Provider Unavailabl e Social History Tobacco Use Types Packs/Day Years Used Date Smoking Tobacco: Never Assessed Sex and Gender Information Value Date Recorded Sex Assigned at Not on file Legal Sex Male 7:37 AM EST Gender Identity Not on file Sexual Orientation Not on file Plan of Treatment Health Maintenance Due Date Last Done Comments Colorectal Cancer Screening: Colonoscopy 1962 Pneumococcal Vaccine: 50+ Years (1 of 1 - PCV) 2012 Zoster Vaccines (1 of 2) 2012 DTaP,Tdap,and Td Vaccines (2 - Td or Tdap) 06/06/2023 06/05/2013 Cholesterol Screening (Lipid Panel) 02/05/2024 HIV Screening 02/05/2024 Hepatitis C Screening [...]
--- OUTSIDE RECORDS SUMMARY | 2024-11-30 15:52 | XMS_ITS | Clinical Summary ---
Author Organization [facility] Address [address] [place] [phone] Phone Care Team Providers Care Bee Raiser Name Role Phone Devorah Nadeem Basilia LÓPEZ [...] this topic Medical Devices Implanted Type Area Machine Tank Operator Device Identifier Shelf Expiration Date Model / Serial / Lot Mesh Surgical 1 in Hernia Prolene 3d Polypropylene Patch - [id number] Implanted:Qty: 1 on 11/18/2018 by Claudia Garrett MD at [facility] STANDARD Umbilical [employer] / DIVISION [employer] J 05/17/2022 [id number] / [id number] Insurance CIGGIUSEPPE PPO CIGNA PPO Member Subscriber Plan / Payer ( fective 2004-Present) Name:Andrea Guidry Relation to Subscriber:Self Name:Andrea Guidry Payer ID:[id number] ([facility]) Type:PPO Address: [address] [place] [id number] CIGNA PPO CIGNA PPO CIGNA PPO CIGNA PPO CIGNA PPO CIGNA PPO CIGGIUSEPPE PPO Advance Directives For more information, please contact: [phone] (9AM - 5PM [facility], Friday-Friday) * Full Code (Presumed) (Latest Code Status on File) Date Activated Date Inactivated Comments 11/18/2018 10:12 AM 11/18/2018 4:35 PM Care Teams Bee Raiser Relationship Specialty Start Date End Date Nadeem Fairchild DO [address] [place] [phone] PCP - General Internal Medicine 10/27/18 Additional Source Comments The information contained in this document represents components of the legal health record. It is not the complete legal health record.[facility]
--- OUTSIDE RECORDS SUMMARY | 2024-11-30 15:52 | XMS_ITS | Encounter Summary ---
Author Organization [facility] Address [address] [address] Phone Care Team Providers Care Engine Testing Supervisor Name Role Phone Nadeem Fairchild DO Primary Care Provider Encounter Details Date Type Department Care Team (Late st Contact Info) Description 11/18/2018 Procedure Pass OR Admitting Dept - Virtual Department [address] [place] [address] Social History Tobacco Use Types Packs/Day Years [...] on filedocumented in this encounter Care Teams Engine Testing Supervisor Relationship Specialty Start Date End Date Nadeem Fairchild DO [address] [place] [phone] PCP - General Internal Medicine 10/27/18 documented as of this encounter Additional Source Comments The information contained in this document represents components of the legal health record. It is not the complete legal health record.[facility]
== END 2024-11-30 13:49 | disposition home or self-care (01) ==
LOC: HO.HMCSH 13:08
PROVIDERS: PCP Internal Medicine; Visit Provider Physician Assistant Medical
DX: Z00.00 Encounter for general adult medical examination without abnormal findings (principal); R97.20 Elevated prostate specific antigen [PSA]; D64.9 Anemia, unspecified; R74.8 Abnormal levels of other serum enzymes; E78.1 Pure hyperglyceridemia; I10 Essential (primary) hypertension

== ENCOUNTER → 2024-11-30 13:08 | Outpatient (BNVA) | payer OTHER, SELFPAY | PROVIDERS: PCP Internal Medicine; Visit Provider Physician Assistant Medical | DX: Z00.00 Encounter for general adult medical examination without abnormal findings (principal); R97.20 Elevated prostate specific antigen [PSA]; D64.9 Anemia, unspecified; E78.1 Pure hyperglyceridemia; I10 Essential (primary) hypertension; R74.8 Abnormal levels of other serum enzymes | CPT/HCPCS: 96127 ==

== ENCOUNTER 2025-01-05 14:49 | Outpatient (AMB) | payer OTHER, SELFPAY ==
--- NOTE | 2025-01-05 15:08 | A.OFFVIS_ITS ---
Intake Visit Reasons: Elevated PSA Intake Note: New Patient Is Present for Elevated PSA Urology Med: None Antibiotic Allergy: None Blood Thinner: None 11/11/24- PSA- 5.04 Patient reports no issues with Urination, Denies any history or Urinary/Bladder infections Reports father had Prostate Cancer. 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 He is a patient of Dr. Park. He is seen for the following urologic conditions - elevated PSA Does show increasing trend Recommend bladder ultrasound for prostate size Gradual increase in PSA JESSICA 1+ prostate soft Initiate dutasteride Three-month follow-up repeat lab work Elevated PSA PSA 01/08 2.5, 02/08 3.2, 02/09 3.6, 11/11 4.4 16% PFSH Medical History Hypertriglyceridemia Elevated liver enzymes Anemia Annual physical exam Elevated PSA Class 1 obesity with body mass index (BMI) of 31.0 to 31.9 in adult Preventative health care Nonalcoholic fatty liver disease Pre-diabetes Establishing care with new doctor, encounter for HTN (hypertension) Surgical History Hx of arthroscopy of right knee History of total left knee replacement Hx of umbilical hernia repair Hx of colonoscopy (~01/21/20) Family History Father Dementia Cirrhosis of liver Low BP Mother Dementia Social History Housing: House Are you a primary hourly caregiver to a significant other at home: No Do you presently have visiting nurse or other home services: No Alcohol intake: current Alcohol intake frequency: a few times a week Alcohol type: wine Patient Tobacco Use Status: Never used Tobacco service: No Current occupational status: employed Cognitive needs: No Hearing needs: No Vision needs: Yes (reading glasses) Review of Systems Const Denies chills and Denies fever(s) Card Reports no additional complaints and Denies syncope Resp Denies cough GI Denies abdominal pain and Denies heartburn Reports as per HPI and Denies change in libido Neuro Denies syncope Psych Denies change in libido Endo Denies change in libido Physical Exam Const General: cooperative, healthy appearing, comfortable and no acute distress Orientation/consciousness: patient oriented x3 HEENT Face and sinus: Yes normal facial exam Mouth: moist mucous membranes Neck Neck: Yes normal visual inspection, Yes full ROM and Yes trachea midline Chest Chest palpation & inspection: normal inspection of the chest Resp Effort & Inspection: normal respiratory effort, able to speak in complete sentences and no respiratory distress GI Inspection: Yes normal to inspection Rectal Exam - Male: Yes normal sphincter tone and Yes prostate normal Male General Exam: Yes normal external exam Penis: normal penis and circumcised Meatus: meatus normal Scrotum: scrotum normal Testes: Testes normal Back/Spine/Pelvis Cervical Spine: normal cervical lordosis Thoracic/Lumbar Spine: thoracic and lumbar spine normal to inspection Skin General skin exam: no rashes or lesions noted Neuro General: patient oriented x3, gait normal, tone normal and moves all extremities Extrem General: Yes normal to inspection and Yes capillary refill normal Assessment & Plan Assessment & Plan (1) Elevated PSA: Code(s): R97.20 - Elevated prostate specific antigen [PSA] Category: Medical Plan Start dutasteride three-month follow-up lab work Ultrasound bladder Orders: Orders PSA,Total (Free>4and<10) 3 Months R97.20 - Elevated prostate specific antigen [PSA] US bladder Today R97.20 - Elevated prostate specific antigen [PSA] Medications: New dutasteride 0.5 mg PO DAILY 90 caps 1RF 90 days R97.20 - Elevated prostate specific antigen [PSA] Patient Instructions: This note is constructed using voice recognition software. While every effort has been made to ensure accuracy folding machine operator errors may have been included. Imaging studies, laboratory and physical exam results were discussed and reviewed in detail. No major barriers to patient understanding were identified. An opportunity to ask questions regarding the treatment plan was provided. All questions were answered. The patient expressed understanding and agreement with the above treatment plan. The patient is aware they should contact our office by phone for worsening of their current condition or the appearance of new urologic symptoms. Compliance is encouraged with any medications and followup testing that is ordered. It is a privilege to participate in the urologic care of your patient. If you have any questions or concerns regarding treatment for the above conditions, or other urologic issues, please do not hesitate to contact me. The office telephone contact is [phone]. Sincerely, Dr Niraj Singer MD, [facility] - Urology Compassionate Specialist Care for the Genitourinary System Coding Level of Care Code New Pt Level 4 (46167) Diagnoses Elevated PSA R97.20
--- OUTSIDE RECORDS SUMMARY | 2025-01-06 03:21 | XMS_ITS | Clinical Summary ---
Author Organization [facility] Address [address] [place] [id number] Phone Care Team Providers Care Metrology Technician Name Role Phone Devorah Nadeem Basilia LÓPEZ [...] this topic Medical Devices Implanted Type Area Tissue Technician Device Identifier Shelf Expiration Date Model / Serial / Lot Mesh Surgical 1 in Hernia Prolene 3d Polypropylene Patch - [id number] Implanted:Qty: 1 on 11/18/2018 by Claudia Garrett MD at [facility] [employer] / DIV[employer] J 05/17/2022 [id number] / / [id number] Insurance CIG[employer] PPO CIGNA PPO Member Subscriber Plan / Payer ( fective 2004-Present) Name:Andrea Guidry Relation to Subscriber:Self Name:Andrea Guidry Payer ID:[id number] ([facility]) Type:PPO Address: [address] [place] [id number] CIGNA PPO CIGNA PPO CIGNA PPO CIGNA PPO CIGNA PPO CIGNA PPO [employer] PPO Advance Directives For more information, please contact: [phone] (9AM - 5PM Rina/[facility], Friday-Friday) * Full Code (Presumed) (Latest Code Status on File) Date Activated Date Inactivated Comments 11/18/2018 10:12 AM 11/18/2018 4:35 PM Care Teams Metrology Technician Relationship Specialty Start Date End Date Nadeem Fairchild DO [address] [place] [id number] PCP - General Internal Medicine 10/27/18 Additional Source Comments The information contained in this document represents components of the legal health record. It is not the complete legal health record.[facility]
--- OUTSIDE RECORDS SUMMARY | 2025-01-06 03:21 | XMS_ITS | Encounter Summary ---
Author Organization [facility] Address [address] [address] Phone Care Team Providers Care Security Manager Name Role Phone Nadeem Fairchild DO Primary Care Provider Encounter Details Date Type Department Care Team (Late st Contact Info) Description 11/18/2018 Procedure Pass OR Admitting Dept - Virtual Department [address] [place] [address] Social History Tobacco Use Types Packs/Day Years [...] on filedocumented in this encounter Care Teams Security Manager Relationship Specialty Start Date End Date Nadeem Fairchild DO [address] [place] [id number] PCP - General Internal Medicine 10/27/18 documented as of this encounter Additional Source Comments The information contained in this document represents components of the legal health record. It is not the complete legal health record.[facility]
== END 2025-01-05 15:30 | disposition home or self-care (01) ==
LOC: HO.HUSH 14:49
PROVIDERS: PCP Internal Medicine; Visit Provider Urology
DX: R97.20 Elevated prostate specific antigen [PSA] (principal)
CPT/HCPCS: 99204